=== PATIENT | female | born 1985 | race African-American/Black ===

== ENCOUNTER 2021-09-27 15:47 | Emergency (ER) | payer OTHER, SELFPAY ==
--- NOTE | 2021-09-27 16:12 | ED.URI ---
HPI - URI/Sore Throat General Chief Complaint: Upper Respiratory Infection Stated Complaint: headache,body aches, trouble breathing, vomiting Time Seen by Provider: 09/27/21 16:13 Source: patient and RN notes reviewed Mode of arrival: ambulatory Limitations: no limitations History of Present Illness MD elicited complaint: fever, cough, rhinorrhea and nasal congestion Onset (ago): day(s) (2) Consistency: constant and progressively worsening Severity: moderate Exacerbating factors: other (coughing) Relieving factors: nothing Associated symptoms: chills, myalgias, headache, cough, nausea, vomiting and diarrhea Related Data Home Medications Medication Instructions Recorded Confirmed No Home Medications 09/27/21 09/27/21 Allergies Allergy/AdvReac Type Severity Reaction Status Date / Time meperidine [From Demerol] Allergy Unknown Verified 09/27/21 16:53 Review of Systems Review of Systems: All systems reviewed & are unremarkable except as noted in HPI and below PMFSH Past Medical History Medical History (Updated 09/27/21 @ 18:28 by Reggie Cardenas MD) Ovarian cyst Surgical History Surgical History (Updated 09/27/21 @ 16:28 by Reggie Cardenas MD) Ovarian cyst cysts removed off of ovaries Social History Social History (Updated 09/27/21 @ 16:28 by Reggie Cardenas MD) Smoking status: Current every day smoker Exam Const: General: healthy appearing, no acute distress and alert Nutritional Appearance: well nourished Orientation/consciousness: patient oriented x3 HENMT: Head: normal to inspection Ears: external ears normal Eyes: Conjunctivae: conjunctivae normal Pupils: Equal, round and reactive pupils present EOM: EOMs intact bilaterally Neck: Neck: normal visual inspection Resp: Effort & Inspection: normal respiratory effort Auscultation: clear to auscultation bilaterally Cardio: Rate: regular rate Rhythm: regular rhythm GI: GI Palp: Yes Soft to palpation and Yes Tenderness to palpation present (GI) (mild states it feels sore from coughing and vomiting) Auscultation: normal bowel sounds Back/Spine/Pelvis: Back: no CVA tenderness Cervical Spine: cervical ROM normal Thoracic/Lumbar Spine: thoraco-lumbar ROM normal Skin: General skin exam: normal color Rashes: no rashes Neuro: General: patient oriented x3, moves all extremities, no meningeal signs, no focal motor deficits and CN's II-XI intact bilaterally Speech: normal speech Gait exam (Neuro): Normal gait present Extrem: General: normal to inspection and no clubbing, cyanosis or edema Psych: Appearance: grossly normal and well kempt Mental Status: mental status grossly normal Affect: normal affect Attitude: cooperative Thought content: Yes Normal thought content present Course Vital Signs Vital signs: Vital Signs Temperature 37.7 C H 09/27/21 16:32 Pulse Rate 111 H 09/27/21 16:32 Respiratory Rate 24 H 09/27/21 16:32 Blood Pressure 163/111 H 09/27/21 16:32 Pulse Oximetry 99 09/27/21 16:32 Temperature 37.7 C H 09/27/21 16:32 Pulse Rate 88 09/27/21 18:38 Respiratory Rate 20 09/27/21 18:38 Blood Pressure 151/95 H 09/27/21 18:38 Pulse Oximetry 98 09/27/21 18:38 MDM - URI/Sore Throat Differential Diagnosis Differential diagnosis: Likely upper respiratory infection, viral infection, bronchitis and influenza Lab Data Attestation: I reviewed the patient's lab results. Result diagrams: 09/27/21 17:27 09/27/21 17:27 Labs: Lab Results 09/27/21 09/27/21 09/27/21 Range/Units 16:12 16:13 17:27 WBC 8.7 (4.8-10.8) K/mm3 RBC 4.29 (4.20-5.40) M/mm3 Hgb 12.7 (12.0-15.0) g/dL Hct 38.3 (35.0-49.0) % MCV 89.3 (78.0-102.0) fL MCH 29.6 (27.0-31.0) pg MCHC 33.2 (32.0-36.0) g/dL RDW 13.4 (11.6-14.4) % Plt Count 212 (150-420) K/mm3 MPV 10.0 (9.2-11.8) fl Immature Gran % (Auto) 0.3 H (0.0-0.0) % Neut % (Auto) 78.4 H (
[2021-09-27 16:32] VITALS: BP 163/111; PULSE 111; RESP 24; TEMP 37.7; O2SAT 99
[2021-09-27] MEDS: ONDANSETRON HCL ODT 4 MG TABLET PO (16:50)
[2021-09-27 17:05] LABS: SARS-CoV-2 RNA PCR Negative (Negative)
[2021-09-27 17:35] LABS: Basophils Absolute Auto 0.02 K/mm3 (0.00-0.10); Basophils Percent Auto 0.2 % (0.0-1.0); Eosinophils Absolute Auto 0.03 K/mm3 (0.02-0.50); Eosinophils Percent Auto 0.3 % (1.0-6.0); Hematocrit 38.3 % (35.0-49.0); Hemoglobin 12.7 g/dL (12.0-15.0); Immature Granulocyte Absolute 0.03 K/mm3 (0.00-0.00); Immature Granulocyte Percent A 0.3 % (0.0-0.0); Lymphocytes Absolute Auto 1.37 K/mm3 (1.10-4.50); Lymphocytes Percent Auto 15.7 % (18.0-42.0); Mean Corpuscular HGB Conc 33.2 g/dL (32.0-36.0); Mean Corpuscular Hemoglobin 29.6 pg (27.0-31.0); Mean Corpuscular Volume 89.3 fL (78.0-102.0); Monocytes Absolute Auto 0.44 K/mm3 (0.10-0.90); Monocytes Percent Auto 5.1 % (2.0-11.0); Neutrophils Absolute Auto 6.8 K/mm3 (1.7-7.2); Neutrophils Percent Auto 78.4 % (50.0-70.0); Platelet Count Result 212 K/mm3 (150-420); Red Blood Count 4.29 M/mm3 (4.20-5.40); Red Cell Distribution Width 13.4 % (11.6-14.4); White Blood Count 8.7 K/mm3 (4.8-10.8)
[2021-09-27 18:04] LABS: Alanine Aminotransferase 25 U/L (14-59); Albumin Level 3.8 g/dL (3.4-5.0); Alkaline Phosphatase 51 U/L (46-116); Anion Gap 16 mmol/L (8-16); Aspartate Amino Transferase 23 U/L (15-37); Bilirubin,Total 0.7 mg/dL (0.00-1.00); Blood Urea Nitrogen 4 mg/dL (7-18); Calcium 9.3 mg/dL (8.5-10.1); Carbon Dioxide 22 mmol/L (21-32); Chloride 99 mmol/L (98-108); Estimated CRCL calculation 96 ml/min; Estimated Glomerular Filt Rate > 60; Ferritin 150 ng/mL (8-252); Glucose 97 mg/dL (70-99); Magnesium 1.8 mg/dL (1.8-2.4); Osmolality Calculated 280 mOsm/kg (285-295); Potassium 3.4 mmol/L (3.5-5.1); Sodium 137 mmol/L (136-145); Total Protein 8.2 g/dL (6.4-8.2)
[2021-09-27 18:06] LABS: CRP 14.1 mg/dL (0.0-0.9)
[2021-09-27] MEDS: ACETAMINOPHEN 325 MG TABLET 650 MG PO (18:06)
[2021-09-27 18:09] LABS: Influenza A QL RT-PCR Negative (Negative); Influenza B QL RT-PCR Negative (Negative)
[2021-09-27 18:11] VITALS: BP 151/100; PULSE 73; RESP 20; O2SAT 97
[2021-09-27 18:13] LABS: Lactic Acid Reflex 0.9 mmol/L (0.4-2.0)
[2021-09-27 18:38] VITALS: BP 151/95; PULSE 88; RESP 20; O2SAT 98
== END 2021-09-27 18:42 | disposition home or self-care (01) ==
PROVIDERS: Emergency Provider Emergency Medicine; PCP Family Medicine
DX: J06.9 Acute upper respiratory infection, unspecified (principal); Z20.822 Contact with and (suspected) exposure to COVID-19
CPT/HCPCS: 36415; 80053; 82728; 83605; 83735; 85025; 86140; 87502; 87804; 96372; 99283; A9270; C9803; J1100; U0003; U0005

== ENCOUNTER 2022-06-18 16:35 | Emergency (ER) | payer OTHER, SELFPAY ==
--- NOTE | ~2022-06-18 | CT_ITS ---
EXAMINATION: CT abdomen pelvis wo con DATE: 06/18/2022 19:20 INDICATION: lower abdominal pain TECHNIQUE: Computed tomography (CT) of the abdomen and pelvis was performed without intravenous contr ast. Automated exposure control and iterative reconstruction technique were employed. The dose-length product was 445.67 mGy-cm. COMPARISON: None. FINDINGS: Lower thorax: Fine bibasilar reticulonodular opacities in the lower lungs. Liver: Normal. Biliary/Gallbladder: Gallbladder is normal. No bile duct dilation. Pancreas: No mass or duct dilation. Spleen: Normal. Adrenals:No mass. Kidneys: No mass, stone, or hydronephrosis. GI tract: No small or large bowel dilation. Normal appendix. Mesentery/Peritoneum: No ascites, mass, or free air. Retroperitoneum: No mass. Pelvis: Pelvic organs are within normal limits. Soft Tissues: Soft tissues and body wall unremarkable. Bones: No acute osseous finding. IMPRESSION: Pulmonary opacities may represent bronchiolitis, as can be seen with atypical infection, asthma, aspi ration, and small airways disease. No acute abdominopelvic process detected. Reviewed, dictated and finalized at location [facility]. PLOYMENT BENEFITS CLAIMS TAKER IMPRESSION: Pulmonary opacities may represent bronchiolitis, as can be seen with atypical i nfection, asthma, aspiration, and small airways disease. No acute abdominopelvi c process detected.
[2022-06-18 17:10] VITALS: BP 121/92; PULSE 102; RESP 16; TEMP 36.4; O2SAT 100
[2022-06-18 17:15] VITALS: BP 121/92; PULSE 102; RESP 16; TEMP 36.4; O2SAT 100
[2022-06-18] MEDS: SODIUM CHLORIDE 0.9% IV 500 ML 999 ML IV CONT (18:11)
[2022-06-18] MEDS: KETOROLAC (*BKC) 60 MG/2 ML VIAL IM (18:13)
[2022-06-18 18:22] LABS: Hematocrit 39.4 % (35.0-49.0); Hemoglobin 12.8 g/dL (12.0-15.0); Mean Corpuscular HGB Conc 32.5 g/dL (32.0-36.0); Mean Corpuscular Hemoglobin 28.7 pg (27.0-31.0); Mean Corpuscular Volume 88.3 fL (78.0-102.0); Platelet Count Result 293 K/mm3 (150-420); Red Blood Count 4.46 M/mm3 (4.20-5.40); Red Cell Distribution Width 13.7 % (11.6-14.4); White Blood Count 3.7 K/mm3 (4.8-10.8)
[2022-06-18 18:39] LABS: Alanine Aminotransferase 63 U/L (14-59); Albumin Level 3.5 g/dL (3.4-5.0); Alkaline Phosphatase 56 U/L (46-116); Anion Gap 10 mmol/L (8-16); Aspartate Amino Transferase 38 U/L (15-37); Bilirubin,Total 0.3 mg/dL (0.00-1.00); Blood Urea Nitrogen 8 mg/dL (7-18); Carbon Dioxide 26 mmol/L (21-32); Chloride 103 mmol/L (98-108); Estimated CRCL calculation 98 ml/min; Estimated Glomerular Filt Rate > 60; Glucose 143 mg/dL (70-99); Lipase 85 U/L (73-393); Osmolality Calculated 288 mOsm/kg (285-295); Potassium 3.6 mmol/L (3.5-5.1); Sodium 139 mmol/L (136-145); Total Protein 7.6 g/dL (6.4-8.2)
[2022-06-18 18:45] LABS: Lactic Acid Reflex 2.1 mmol/L (0.4-2.0)
[2022-06-18 18:52] LABS: Add Urine Microscopic? YES; Appearance Urine Clear (Clear); Bilirubin Urine Negative (Negative); Blood Urine 3+ (Negative); Color Urine Yellow (Yellow); Glucose Urine UA Negative (Negative); Ketones Urine Negative (Negative); Leukocyte Esterase Ur Negative LEU/UL (Negative); Nitrate Urine Negative (Negative); Protein Urine Negative (Negative); Specific Grav Ur 1.025 (1.010-1.020); Urobilinogen Urine 0.2 mg/dL (0.2-1.0)
[2022-06-18 18:57] LABS: Band Neutrophils Percent 0 % (0-6); Basophils Percent Manual 0 % (0-1); Eosinophils Absolute Manual 0.07 K/mm3 (0.02-0.5); Eosinophils Percent Manual 2 % (1-6); Lymphocytes Absolute Manual 0.74 K/mm3 (1.1-4.5); Lymphocytes Percent Manual 20 % (18-44); Monocytes Absolute Manual 0.37 K/mm3 (0.1-0.90); Monocytes Percent Manual 10 % (3-9); Neutrophils Absolute Manual 2.51 K/mm3 (1.7-7.2); Neutrophils Percent Manual 68 % (46-73); Platelet Estimate Adequate (Adequate)
[2022-06-18 19:01] LABS: Serum Qual hCG Negative
[2022-06-18 19:02] LABS: SPREG INTERNAL CONTROL Positive
[2022-06-18 19:05] LABS: RBC Urine 21-50 /hpf (0-2); WBC Urine 0-3 /hpf (0-3)
[2022-06-18 19:06] LABS: Bacteria Urine Trace /hpf; Squamous Epithelial Cell Urine Occasional /hpf (Few)
[2022-06-18 19:10] VITALS: BP 122/78; PULSE 87; RESP 20; TEMP 36.6; O2SAT 98
[2022-06-18 21:17] LABS: Reflex Lactic Acid Yes or No Add Lactic
--- NOTE | 2022-06-18 21:53 | ED.ABDPAIN ---
HPI - Abdominal Pain General Chief Complaint: Abdominal Pain Stated Complaint: Abdominal pain right side started yesterday Time Seen by Provider: 06/18/22 16:38 Source: patient and RN notes reviewed Mode of arrival: ambulatory Limitations: no limitations History of Present Illness MD elicited complaint: abdominal pain Onset (ago): day(s) (1) Pain Consistency: constant Location: R flank Severity: moderate Pain scale (0-10): 8 Quality: aching Migration to: no migration Exacerbating factors: nothing Relieving factors: nothing Related Data Patient : No Allergies Allergy/AdvReac Type Severity Reaction Status Date / Time meperidine [From Demerol] Allergy Unknown Verified 06/18/22 17:29 Review of Systems Review of Systems: All systems reviewed & are unremarkable except as noted in HPI and below Constitutional: Constitutional: Reports no additional constitutional complaints Eyes: Eyes: Reports no additional eye complaints ENT: Reports system reviewed and no additional complaints, except as documented Cardiovascular: Cardiovascular: Reports no additional cardiovascular complaints Respiratory: Respiratory: Reports no additional respiratory complaints Gastrointestinal: Gastrointestinal: Reports no additional gastrointestinal complaints Genitourinary: Genitourinary: Reports no additional female genitourinary complaints Musculoskeletal: Musculoskeletal: Reports no additional musculoskeletal complaints Integumentary/Breasts: Skin/Breast: Reports system reviewed and no additional complaints, except as docu Neurologic: Reports system reviewed and no additional complaints, except as documented Psychiatric: Psychiatric: Reports no additional psychiatric complaints Endocrine: Endocrine: Reports no additional endocrine complaints Hematologic/Lymphatic: Hematologic/Lymphatic: Reports no additional hematologic/lymphatic complaints Allergic/Immunologic: Allergic/Immunologic: Reports no additional allergic/immunologic complaints PMFSH Past Medical History Medical History Bronchiolitis Ovarian cyst Pelvic pain Surgical History Surgical History Ovarian cyst cysts removed off of ovaries Social History Social History Smoking status: Current every day smoker Exam Const: General: no acute distress and well nourished Nutritional Appearance: well nourished Orientation/consciousness: patient oriented x3 Limitations: no limitations HENMT: Head: normal to inspection Ears: external ears normal, TM's normal bilaterally and EAC's normal Face/Nose/Sinus: Normal external nose present, Normal nares present, normal facial exam and sinuses nontender Face and sinus: normal facial exam and sinuses nontender Mouth: Yes Normal oral and palatal mucosa present and Yes moist mucous membranes Teeth and gingiva: dentition normal Throat: posterior oropharynx normal Eyes: Conjunctivae: conjunctivae normal Pupils: Equal, round and reactive pupils present EOM: EOMs intact bilaterally Neck: Neck: normal visual inspection, no lymphadenopathy and no meningeal signs Chest: Chest palpation & inspection: normal inspection of the chest Resp: Effort & Inspection: normal respiratory effort Auscultation: clear to auscultation bilaterally Cardio: Rate: regular rate Rhythm: regular rhythm GI: GI Palp: Yes Soft to palpation and Yes Tenderness to palpation present (GI) (minimally tender RLQ abdomen) Auscultation: normal bowel sounds : General: Yes bladder normal to palpation and Yes no CVA tenderness Bimanual exam- vagina & uterus: bladder normal to palpation Back/Spine/Pelvis: Back: no CVA tenderness Skin: General skin exam: normal color Rashes: no rashes Wounds: no wounds Neuro: General: patient oriented x3, moves all extremities, no meningeal signs, no focal
[2022-06-18] MEDS: HYDROcodone/acetaminophen (*CRX) 5-325 MG TABLET 1 TAB PO (21:55)
[2022-06-18 21:56] VITALS: BP 115/80; PULSE 87; RESP 18; TEMP 36.6; O2SAT 99
[2022-06-18 21:57] LABS: Lactic Acid 1.4 mmol/L (0.4-2.0)
== END 2022-06-18 22:07 | disposition home or self-care (01) ==
PROVIDERS: Emergency Provider Emergency Medicine; PCP Physician Assistant
DX: R10.2 Pelvic and perineal pain (principal); J21.9 Acute bronchiolitis, unspecified
CPT/HCPCS: 36415; 74176; 80053; 81001; 83605; 83690; 84703; 85025; 96360; 96372; 99284; A9270; J1885; J7040

== ENCOUNTER 2022-08-27 13:49 | Outpatient (CLI) | payer OTHER, SELFPAY ==
--- NOTE | ~2022-08-27 | XR_ITS ---
EXAMINATION: XR chest 2V DATE: 08/27/2022 14:15 INDICATION: Shortness of breath and productive cough. TECHNIQUE: PA and lateral views of the chest were obtained. COMPARISON: CT dated 06/10/2022 FINDINGS: Fine reticular pattern in both lungs most prominent in the right mid and upper lung zones. No pleural effusion or pneumothorax. The cardiomediastinal silhouette is normal. Mild thoracic levocurvature. IMPRESSION: 1. Bilateral diffuse fine reticular pattern which could represent chronic interstitial lung disease, sarcoidosis, mild pulmonary edema, reactive airway disease/asthma or atypical pneumonia. Reviewed, dictated and finalized at location [facility]. TERED WEALTH MANAGER IMPRESSION: 1. Bilateral diffuse fine reticular pattern which could represent chronic inter stitial lung disease, sarcoidosis, mild pulmonary edema, reactive airway diseas e/asthma or atypical pneumonia.
== END 2022-08-27 13:50 | disposition home or self-care (01) ==
LOC: CHSIMG 13:53
PROVIDERS: PCP Physician Assistant; Visit Provider Physician Assistant
DX: R06.02 Shortness of breath (principal); U09.9 Post COVID-19 condition, unspecified; R05.9 Cough, unspecified; Z87.891 Personal history of nicotine dependence; R91.8 Other nonspecific abnormal finding of lung field
CPT/HCPCS: 71046

== ENCOUNTER 2022-09-28 12:13 | Outpatient (CLI) | payer OTHER, SELFPAY ==
--- NOTE | ~2022-09-28 | CT_ITS ---
CT Scan of the Chest without Contrast: Clinical Indication: Abnormal findings of lung field Technique: Contiguous sections were acquired throughout the chest without intravenous contrast. Dose reduction technique was used on this scan by utilizing automated exposure control and iterative recon struction technique. The dose-length product (DLP) was 139.56 mGy-cm. Findings: Mildly prominent mediastinal lymph nodes are present.. No aortic aneurysm. There is no evidence of pleural or pericardial effusion. There are innumerable tiny pulmonary nodules and mild interstitial thickening. The pulmonary nodules especially present along the fissures and subpleural regions, compatible with perilymphatic distribut ion. Images through the upper abdomen reveal no abnormalities. Impression: Innumerable tiny perilymphatic nodules, extensive mild interstitial thickening, and mild mediastinal adenopathy. Constellation of findings is most compatible with sarcoid with significant pulmonary invo lvement. Reviewed, dictated and finalized at [facility]. OPERATIONS COORDINATOR Impression: Innumerable tiny perilymphatic nodules, extensive mild interstitial thickening, and mild mediastinal adenopathy. Constellation of findings is most compatible with sarcoid with significant pulmonary involvement.
--- NOTE | 2022-09-28 13:29 | ECHO_ITS ---
Patient Info Name: Jane Newman Age: 36 years : 1985 Gender: Female Ht: 67 in Wt: 182 lbs BSA: 2.00 m2 HR: 63 bpm BP: 149 / 107 mmHg Technical Quality: Good Exam Date: 09/28/2022 1:17 PM Exam Location: [facility] Patient Status: Outpatient Admit Date: 09/28/2022 Staff Ordering Physician: Yobani, Adenike ARTEAGA Chief Of Staff Doctor: Maikel Yee, DEBRA, RT Attending Provider: Yobani, Adenike ARTEAGA Exam Type: CA echo doppler color flow Study Info Indications - SALDANA R06.09 - Other forms of dyspnea Complete two-dimensional, color flow and Doppler transthoracic echocardiogram is performed. Strain analysis performed. Summary 1. Complete two-dimensional, color flow and Doppler transthoracic echocardiogram is performed. 2. Left ventricular chamber dimension is normal. 3. Left ventricular systolic function is normal, estimated at 60-65%. 4. The left ventricular diastolic function is normal. 5. E/e' 9 is minimally elevated. 6. Global longitudinal strain is normal at -19.4%. 7. There is mild mitral valve regurgitation. 8. There is trace tricuspid valve regurgitation. Left Ventricle E/e' 9 is minimally elevated. Global longitudinal strain is normal at -19.4%. Left ventricular chamber dimension is normal. Left ventricular systolic function is normal, estimated at 60-65%. The left ventricular diastolic function is normal. Right Ventricle Right ventricular systolic function is normal and with normal TAPSE 1.7 cm. Right ventricular chamber dimension is normal. Left Atria Left atrial chamber dimension is normal. Right Atria Right atrial chamber dimension is normal. Aortic Valve The aortic valve is trileaflet. There is no aortic valve stenosis. There is no aortic valve regurgitation. Pulmonic Valve There is no pulmonic regurgitation. Mitral Valve There is no mitral valve stenosis. There is mild mitral valve regurgitation. Tricuspid Valve There is trace tricuspid valve regurgitation. RVSP is not calculated due to an inadequate TR jet. Pericardium/Pleural There is no pericardial effusion. Inferior Vena Cava Normal inferior vena cava with >50% collapse upon inspiration consistent with normal right atrial pressure, 5 mmHg. Aorta The aortic root size at the sinus of Valsalva is normal. Left Ventricular Outflow Tract Name Value Normal LVOT 2D LVOT Diameter 2.0 cm LVOT Doppler LVOT Peak Velocity 105 cm/s LVOT Peak Gradient 4 mmHg LVOT Mean Gradient 2 mmHg LVOT VTI 23 cm LVOT VTI/AV VTI Ratio 0.8 LVOT Stroke Volume 74 ml Mitral Valve Name Value Normal MV Doppler MV Decel Monona 558 cm/s2 MV PHT
== END 2022-09-28 12:14 | disposition home or self-care (01) ==
LOC: CHSIMG 12:15
PROVIDERS: PCP Physician Assistant; Visit Provider Nurse Practitioner Gerontology
DX: R91.8 Other nonspecific abnormal finding of lung field (principal); R06.09 Other forms of dyspnea
CPT/HCPCS: 71250; 93306

== ENCOUNTER 2022-10-02 09:13 | Outpatient (CLI) | payer OTHER, SELFPAY ==
[2022-10-02 10:45] VITALS: PULSE 74; O2SAT 100
[2022-10-02 10:52] VITALS: PULSE 99; O2SAT 99
--- NOTE | 2022-10-02 11:41 | SIXMINWLK ---
Six Minute Walk Test PFT: Six Minute Walk Start: 10/02/22 11:36 Freq: Status: Active Protocol: RPE Activity Type Activity Date Activity User E-sign Co-sign Detail Recorded Client Recorded Date Recorded By Document 10/02/22 10:45 YANAGt [id number] 10/02/22 11:39 RAMIRO Document 10/02/22 10:52 RAMIRO [id number] 10/02/22 11:41 KAB 10/02/22 10/02/22 10:45 10:52 Six Minute Walk Gender F F Age [age] Race Black Palestinian Black Six Minute Walk Post Test -Pulse Rate (60-100 beats/min) 99 -Pulse Oximetry (90-100 %) 99 Six Minute Walk Baseline -Pulse Rate (60-100 beats/min) 74 -Pulse Oximetry (90-100 %) 100 Number of Complete Laps ( 1 Lap = 100 12 Feet, Enter Total Feet) Stopped/Paused During Testing - Enter Yes Comment if Yes Six Minute Walk Comments Patient's Spo2 dropped to 89, we paused to make sure that was correct and Spo2 went back up to 99 before we did anything. Spo2 stayed up for duration of test.
--- NOTE | 2022-10-12 15:36 | WPDPFTINT ---
PFT Interpretation DOS: 10/02/2022 REQUESTING: Adenike Hilton NP REASON FOR TESTING: dyspnea PULMONARY FUNCTION TESTS Results are reliable and reproducible. Spirometry: Pre-bronchodilator FEV1 is 2.14 L, 70% predicted, mildly decreased. Pre-bronchodilator FVC is 3.02 L, 81%, normal. FEV1/ FVC ratio is 71%. After bronchodilator administration there is no change in the FEV1. There is a 3% decrease in the FVC. These are not statistically significant changes. Lung volumes: Total lung capacity is 3.75 L, 66% predicted, consistent with mild restrictive impairment. The residual volume is 0.61 L, 32%, not increased. RV/TLC is 16%, lower than normal. Airway resistance is 233% predicted. Diffusion: DLCO is 18.5, 70%, normal. DLCO/ VA is 4.76, 107%, normal. Flow volume loop: Normal. IMPRESSION: This study shows a mild restrictive ventilatory impairment, no response to bronchodilator and normal diffusion. There is no prior study for comparison. Niru Desouza MD
--- NOTE | 2022-10-24 12:38 | WPDSIXMINUTE ---
Six Minute Walk Procedure Procedure Performed Pulmonary Stress Test (6 min walk) Six Minute Walk Six Minute Walk: DOS: 10/02/2022 SIX MINUTE WALK This study was conducted per ATS criteria. the patient walked while breathing room air. Initial saturation was 100% and initial pulse was 74. The patient walked with a decrease in her saturation to 89% transiently. The cdl service technician stop the test to ensure accuracy of the 6 oximeter. Test was quickly restarted and the patient completed a total distance of 1200 ft. There were no further episodes of desaturation. IMPRESSION: Transient desaturation 89% without rachel hypoxemia. Patient does not qualify for supplemental oxygen with exertion. Distance walked is adequate for age.
== END 2022-10-02 09:14 | disposition home or self-care (01) ==
LOC: CHSCARD 09:20
PROVIDERS: PCP Physician Assistant; Visit Provider Nurse Practitioner Gerontology
DX: R91.8 Other nonspecific abnormal finding of lung field (principal); R06.09 Other forms of dyspnea
CPT/HCPCS: 94060; 94618; 94726; 94729

== ENCOUNTER 2022-10-05 09:46 | Emergency (ER) | payer OTHER, SELFPAY ==
[2022-10-05] VITALS (20 sets, daily range): BP systolic 122–159; BP diastolic 97–107; PULSE 82–122; RESP 18–24; TEMP 36.8–37; O2SAT 98–100
--- NOTE | 2022-10-05 09:56 | ED.GENADULT ---
HPI - General Adult General Chief complaint: Upper Respiratory Infection Stated complaint: cough Time Seen by Provider: 10/05/22 09:55 History of Present Illness HPI narrative: The patient is a 36-year-old woman who was recently diagnosed with sarcoidosis, placed on prednisone 20 mg daily for 7 days last month and then more recently has been placed on prednisone 40 mg daily which she has now taken for the last 3 days but not including today. She has seen a pediatric orthodontist for this due to symptoms of dyspnea and voice changes. She is also status post ovarian cystectomy. She does smoke cigarettes. She has had COVID-19 in the past. Her son was diagnosed with COVID-19 4 days ago in this institution. she has had 5 prior pregnancies. She has done a home test by urine 3 days ago twice and was positive. This makes it her 6th . The patient presents with onset of upper respiratory tract infection symptoms consisting of a cough productive of green sputum, myalgias, aches and pains, headache, dyspnea, rhinorrhea, nasal congestion, and sore throat. She has had 5 episodes of emesis since yesterday morning. She has had 3 episodes of watery diarrhea since yesterday morning, 2 today, once yesterday. Has had fevers as high as 101?, chills and diaphoresis. She also has had vaginal spotting, noticed yesterday, and again earlier today. Does have epigastric and lower pelvic discomfort which radiates to the back. For the last month, has had urinary urgency but no frequency or dysuria or hematuria. Related Data Allergies Allergy/AdvReac Type Severity Reaction Status Date / Time meperidine [From Demerol] Allergy Unknown Verified 06/18/22 17:29 Review of Systems Review of Systems: All systems reviewed & are unremarkable except as noted in HPI and below Constitutional: Constitutional: Reports as per HPI, Reports no additional constitutional complaints, Reports chills, Denies excessive sweating, Reports fatigue, Reports fever(s), Reports headache(s) and Reports weakness Eyes: Eyes: Reports as per HPI, Reports no additional eye complaints, Denies change in vision and Denies photophobia ENT: Reports system reviewed and no additional complaints, except as documented, Reports as per HPI, Denies dysphagia, Denies vertigo, Denies dizziness, Reports headache(s), Denies lip swelling, Reports nasal congestion, Reports sore throat, Denies throat swelling and Denies tongue swelling Cardiovascular: Cardiovascular: Reports as per HPI, Reports no additional cardiovascular complaints, Denies chest pain, Denies syncope, Denies rapid heart rate and Reports dyspnea Respiratory: Respiratory: Reports as per HPI, Reports no additional respiratory complaints, Reports chest congestion, Reports cough, Reports dyspnea and Denies wheezing Gastrointestinal: Gastrointestinal: Reports as per HPI, Reports no additional gastrointestinal complaints, Reports abdominal pain, Denies constipation, Denies dysphagia, Reports diarrhea, Reports nausea and Reports vomiting Genitourinary: Genitourinary: Reports as per HPI, Denies hematuria, Denies urinary frequency, Denies dysuria, Denies urinary incontinence and Reports urinary urgency Musculoskeletal: Musculoskeletal: Reports no additional musculoskeletal complaints, Denies back pain, Reports myalgias, Denies arthralgias, Denies joint swelling and Denies numbness Integumentary/Breasts: Skin/Breast: Reports system reviewed and no additional complaints, except as docu, Denies pruritus, Denies erythema, Denies rash and Denies skin ulcer Neurologic: Reports system reviewed and no additional complaints, except as documented, Reports as per HPI, Denies confusion, Denies vertigo, Denies dizziness, Denies syncope, Reports headache(s), Denies focal weakness, Denies numbness and Reports weakness (generalized) Psychiatric: Psychiatric: Reports as per HPI, Denies anxiety, Denies confusion, Denies depression, Denies homicidal ideation and Denies jose
[2022-10-05 10:27] LABS: Appearance Urine Clear (Clear); Basophils Absolute Auto 0.03 K/mm3 (0.00-0.10); Basophils Percent Auto 0.3 % (0.0-1.0); Bilirubin Urine 1+ (Negative); Blood Urine Negative (Negative); Color Urine Yellow (Yellow); Eosinophils Absolute Auto 0.04 K/mm3 (0.02-0.50); Eosinophils Percent Auto 0.4 % (1.0-6.0); Glucose Urine UA Negative (Negative); Hemoglobin 12.4 g/dL (12.0-15.0); Immature Granulocyte Absolute 0.04 K/mm3 (0.00-0.00); Immature Granulocyte Percent A 0.4 % (0.0-0.0); Ketones Urine 2+ (Negative); Leukocyte Esterase Ur Negative LEU/UL (Negative); Lymphocytes Absolute Auto 0.72 K/mm3 (1.10-4.50); Lymphocytes Percent Auto 7.6 % (18.0-42.0); Mean Corpuscular HGB Conc 34.4 g/dL (32.0-36.0); Mean Corpuscular Hemoglobin 28.2 pg (27.0-31.0); Mean Platelet Volume 9.9 fl (9.2-11.8); Monocytes Percent Auto 6.3 % (2.0-11.0); Neutrophils Absolute Auto 8.1 K/mm3 (1.7-7.2); Nitrate Urine Negative (Negative); Platelet Count Result 226 K/mm3 (150-420); Protein Urine Trace (Negative); Red Blood Count 4.39 M/mm3 (4.20-5.40); Red Cell Distribution Width 15.8 % (11.6-14.4); White Blood Count 9.5 K/mm3 (4.8-10.8)
[2022-10-05] MEDS: ONDANSETRON INJ 4 MG/2 ML VIAL IV PUSH (10:37)
[2022-10-05] MEDS: SODIUM CHLORIDE 0.9% IV 1,000 ML 999 ML IV CONT ×2 (10:37)
[2022-10-05 10:41] LABS: Add Urine Microscopic? YES
[2022-10-05 10:42] LABS: Bacteria Urine Trace /hpf; RBC Urine 0-2 /hpf (0-2); Squamous Epithelial Cell Urine Moderate /hpf (Few); WBC Urine 0-3 /hpf (0-3)
[2022-10-05 11:04] LABS: Influenza A QL RT-PCR Negative (Negative); Influenza B QL RT-PCR Negative (Negative); SARS-CoV-2 RNA PCR Negative (Negative)
[2022-10-05 11:10] LABS: RSV RNA, RT-PCR Negative (Negative); Strep Group A RT-PCR NOT DETECTED (Negative)
[2022-10-05 11:26] LABS: Lactic Acid Reflex 1.2 mmol/L (0.4-2.0)
[2022-10-05 11:33] LABS: Amphetamine Screen Urine Negative (Negative); Barbiturate Screen Urine Negative (Negative); Benzodiazepines Screen Urine Negative (Negative); Cannabinoid Screen Urine Positive (Negative); Cocaine Screen Urine Negative (Negative); Methadone Screen Urine Negative (Negative); Opiate Screen Urine Negative (Negative); Phencyclidine Screen Urine Negative (Negative)
[2022-10-05 11:38] LABS: Amylase 52 U/L (25-115); Magnesium 1.4 mg/dL (1.8-2.4)
[2022-10-05 11:39] LABS: Anion Gap 15 mmol/L (8-16); Blood Urea Nitrogen 5 mg/dL (7-18); Carbon Dioxide 21 mmol/L (21-32); Chloride 98 mmol/L (98-108); Estimated CRCL calculation 96 ml/min; Estimated Glomerular Filt Rate > 60; Glucose 126 mg/dL (70-99); Lipase 20 U/L (16-77); Osmolality Calculated 277 mOsm/kg (285-295); Potassium 3.2 mmol/L (3.5-5.1); Sodium 134 mmol/L (136-145)
[2022-10-05 11:40] LABS: Alanine Aminotransferase 34 U/L (14-59); Albumin Level 3.6 g/dL (3.4-5.0); Alkaline Phosphatase 52 U/L (46-116); Aspartate Amino Transferase 23 U/L (15-37); Bilirubin,Total 0.9 mg/dL (0.00-1.00); Calcium 9.3 mg/dL (8.5-10.1); Total Protein 8.4 g/dL (6.4-8.2)
[2022-10-05] MEDS: ACETAMINOPHEN 500 MG TABLET 1000 MG PO (12:03)
[2022-10-05] MEDS: MAGNESIUM SULF 2 GM/WATER 50ML 2 GM/50 ML BAG IVPB (12:07)
[2022-10-05] MEDS: POTASSIUM BICARBONATE 25 MEQ TABEF 50 MEQ PO (12:07)
--- NOTE | 2022-10-11 14:15 | PC.NURSE ---
FINAL BLOOD CULTURE REPORT : No growth after 5 days. no action needed.
== END 2022-10-05 13:19 | disposition home or self-care (01) ==
PROVIDERS: Emergency Provider Emergency Medicine; PCP Physician Assistant
DX: O99.519 Diseases of the respiratory system complicating pregnancy, unspecified trimester (principal); O21.0 Mild hyperemesis gravidarum; O26.899 Other specified pregnancy related conditions, unspecified trimester; E83.42 Hypomagnesemia; E87.6 Hypokalemia; O99.330 Smoking (tobacco) complicating pregnancy, unspecified trimester; F17.210 Nicotine dependence, cigarettes, uncomplicated; Z3A.00 Weeks of gestation of pregnancy not specified; Z20.822 Contact with and (suspected) exposure to COVID-19
CPT/HCPCS: 36415; 80053; 80307; 81001; 82150; 83605; 83690; 83735; 84702; 85025; 86900; 86901; 87040; 87637; 87651; 96361; 96365; 96375; 99284; A9270; J2405; J3475; J7030

== ENCOUNTER 2022-10-10 10:21 | Outpatient (CLI) | payer OTHER, SELFPAY ==
--- NOTE | ~2022-10-10 | US_ITS ---
CORRECTED REPORT exam description changed [facility] [id number] This report was recreated on 10/10/22. Original report was US OB <= 14 weeks fetus DATE: 10/10/2022 11:04 INDICATION: Vaginal spotting TECHNIQUE: Real-time imaging and Doppler analysis COMPARISON: None FINDINGS: The uterus measures approximately 10.2 cm height, 7.7 cm AP and 6.2 cm transverse dimension. There is intrauterine gestational sac or yolk sac and pole are identified. Mean sac diameter consistent with 6 weeks estimated gestational age. There is a 5.6 x 9.3 x 6.7 mm subchorionic hematoma. Cervical nabothian cyst measuring approximately 9 x 11 mm. Right ovary 2.8 x 2.4 x 2.9 cm. Left ovary 4.0 x 1.7 x 2.5 cm. IMPRESSION: Subchorionic hematoma Reviewed, dictated and finalized at [facility]. Reviewed, dictated and finalized at location [facility]. MTDD IMPRESSION: Subchorionic hematoma
== END 2022-10-10 10:22 | disposition home or self-care (01) ==
LOC: CHSLAB 10:23
PROVIDERS: PCP Physician Assistant; Visit Provider Family Medicine
DX: O26.859 Spotting complicating pregnancy, unspecified trimester (principal); O36.8911 Maternal care for other specified fetal problems, first trimester, fetus 1; Z3A.00 Weeks of gestation of pregnancy not specified
CPT/HCPCS: 36415; 76801; 84702

== ENCOUNTER 2022-10-12 13:16 | Outpatient (CLI) | payer OTHER, SELFPAY | END 2022-10-12 13:17 | disposition home or self-care (01) | LOC: CHSLAB 13:18 | PROVIDERS: PCP Physician Assistant; Visit Provider Family Medicine | DX: O26.859 Spotting complicating pregnancy, unspecified trimester (principal) | CPT/HCPCS: 36415; 84702 ==

== ENCOUNTER 2022-12-12 08:32 | Emergency (ER) | payer OTHER, SELFPAY ==
[2022-12-12] VITALS (7 sets, daily range): BP systolic 116–139; BP diastolic 78–90; PULSE 86–104; RESP 20–24; TEMP 36.4; O2SAT 92–97
--- NOTE | 2022-12-12 08:38 | ED.URI ---
HPI - URI/Sore Throat General Chief Complaint: Upper Respiratory Infection Stated Complaint: stomach pain, difficulty breathing, coughing Time Seen by Provider: 12/12/22 08:38 Source: patient Mode of arrival: ambulatory Limitations: no limitations History of Present Illness HPI Narrative: 36-year-old female with a history of sarcoidosis on steroids. Questionable asthma which was stopped secondary to her . ( on home albuterol and Symbicort) presents to the ER with a 3 day history of -- cough productive of mucoid sputum -- shortness of breath -- sore throat -- body ache -- nausea -- patient is 15 weeks as confirmed by an ultrasound. She has had a 6 pack prior pregnancies without any major respiratory problems. MD elicited complaint: cough and sore throat Pertinent past history: asthma Onset (ago): day(s) ( started 3 days ago) Consistency: constant Severity: severe Description of mucous: clear Exacerbating factors: exertion Relieving factors: nothing Associated symptoms: sore throat, cough, shortness of breath and nausea Treatments prior to arrival: none Related Data Home Medications Medication Instructions Recorded Confirmed aspirin 81 mg tablet,delayed 81 mg PO DAILY 12/12/22 12/12/22 release pyridoxine (vitamin B6) 25 mg 1 mg PO DAILY 12/12/22 12/12/22 tablet (Vitamin B-6) Allergies Allergy/AdvReac Type Severity Reaction Status Date / Time meperidine [From Demerol] Allergy Unknown Verified 12/12/22 08:35 Review of Systems Review of Systems: All systems reviewed & are unremarkable except as noted in HPI and below Constitutional: Constitutional: Reports as per HPI and Reports no additional constitutional complaints Eyes: Eyes: Reports as per HPI and Reports no additional eye complaints ENT: Reports system reviewed and no additional complaints, except as documented, Reports as per HPI and Reports sore throat Cardiovascular: Cardiovascular: Reports as per HPI and Reports no additional cardiovascular complaints Respiratory: Respiratory: Reports as per HPI, Reports cough, Reports dyspnea and Reports wheezing Gastrointestinal: Gastrointestinal: Reports as per HPI, Reports no additional gastrointestinal complaints and Reports nausea Genitourinary: Genitourinary: Reports no additional female genitourinary complaints Musculoskeletal: Musculoskeletal: Reports no additional musculoskeletal complaints and Reports as per HPI Integumentary/Breasts: Skin/Breast: Reports system reviewed and no additional complaints, except as docu and Reports as per HPI Neurologic: Reports system reviewed and no additional complaints, except as documented and Reports as per HPI Psychiatric: Psychiatric: Reports no additional psychiatric complaints and Reports as per HPI Endocrine: Endocrine: Reports no additional endocrine complaints and Reports as per HPI Hematologic/Lymphatic: Hematologic/Lymphatic: Reports no additional hematologic/lymphatic complaints and Reports as per HPI Allergic/Immunologic: Allergic/Immunologic: Reports no additional allergic/immunologic complaints and Reports as per HPI [facility] Past Medical History Medical History Bronchiolitis Ovarian cyst Pelvic pain Surgical History Surgical History Ovarian cyst cysts removed off of ovaries Social History Social History Smoking status: Current every day smoker Exam Const: General: ill appearing Orientation/consciousness: patient oriented x3 HENMT: Head: normal to inspection Ears: external ears normal Face/Nose/Sinus: Normal external nose present Face and sinus: normal facial exam Mouth: Yes Normal oral and palatal mucosa present Throat: posterior oropharynx normal Eyes: Conjunctivae: conjunctivae normal Pupils: Equal, round and reactive pupils present EOM: EO
[2022-12-12] MEDS: methylPREDNISolone SOD SUCC 125 MG VIAL IM (08:58)
[2022-12-12] MEDS: IPRATROPIUM 0.5 MG/ALBUTEROL SULFATE 2.5 MG AMPUL.NEB 3 ML INHALATION (09:00)
[2022-12-12 09:14] LABS: Basophils Absolute Auto 0.03 K/mm3 (0.00-0.10); Basophils Percent Auto 0.4 % (0.0-1.0); Eosinophils Absolute Auto 0.27 K/mm3 (0.02-0.50); Eosinophils Percent Auto 3.6 % (1.0-6.0); Hematocrit 38.5 % (35.0-49.0); Hemoglobin 13.2 g/dL (12.0-15.0); Immature Granulocyte Absolute 0.02 K/mm3 (0.00-0.00); Immature Granulocyte Percent A 0.3 % (0.0-0.0); Lymphocytes Absolute Auto 1.06 K/mm3 (1.10-4.50); Lymphocytes Percent Auto 14.2 % (18.0-42.0); Mean Corpuscular HGB Conc 34.3 g/dL (32.0-36.0); Mean Corpuscular Hemoglobin 29.5 pg (27.0-31.0); Mean Corpuscular Volume 86.1 fL (78.0-102.0); Mean Platelet Volume 9.4 fl (9.2-11.8); Monocytes Percent Auto 9.3 % (2.0-11.0); Neutrophils Absolute Auto 5.4 K/mm3 (1.7-7.2); Neutrophils Percent Auto 72.2 % (50.0-70.0); Platelet Count Result 232 K/mm3 (150-420); Red Blood Count 4.47 M/mm3 (4.20-5.40); White Blood Count 7.5 K/mm3 (4.8-10.8)
[2022-12-12 09:31] LABS: INR 0.9; Partial Thromboplastin Time 28.9 SEC (23.90-30.70); Prothrombin Time 10.3 Seconds (9.50-12.10)
[2022-12-12 09:35] LABS: Strep Group A RT-PCR NOT DETECTED (Negative)
--- NOTE | 2022-12-12 09:40 | PC.NURSE ---
PT IS RESTING ON STRETCHER, FHT OBTAINED WITH 179. PT COUGH HAS SUBSIDED POST NEB TX. PT SIG OTHER HAS WENT TO CAR. PT IS AWAITING RESULTS AT THIS TIME. RESP SX IMPROVED. WILL CONTINUE TO MONITOR.
[2022-12-12 09:46] LABS: Influenza A QL RT-PCR Negative (Negative); Influenza B QL RT-PCR Negative (Negative); SARS-CoV-2 RNA PCR Negative (Negative)
[2022-12-12 09:47] LABS: RSV RNA, RT-PCR Negative (Negative)
[2022-12-12 10:00] LABS: Chloride 103 mmol/L (98-108); Potassium 3.6 mmol/L (3.5-5.1); Sodium 138 mmol/L (136-145)
[2022-12-12 10:01] LABS: Alanine Aminotransferase 19 U/L (14-59); Anion Gap 11 mmol/L (8-16); Aspartate Amino Transferase 17 U/L (15-37); Bilirubin,Total 0.2 mg/dL (0.00-1.00); Blood Urea Nitrogen 3 mg/dL (7-18); Calcium 9.2 mg/dL (8.5-10.1); Carbon Dioxide 24 mmol/L (21-32); Estimated CRCL calculation 117 ml/min; Estimated Glomerular Filt Rate > 60; Glucose 95 mg/dL (70-99); Osmolality Calculated 282 mOsm/kg (285-295); Troponin I < 4.0 ng/L (0.00-60.4)
[2022-12-12 10:02] LABS: Albumin Level 3.4 g/dL (3.4-5.0); Alkaline Phosphatase 44 U/L (46-116); NT Pro B Type Natriuretic Pept 16 pg/mL (0-125)
--- NOTE | 2022-12-12 10:09 | PC.NURSE ---
PT UP TO RR, WHEN SHE RETURNS SOB NOTED. PT HAS COUGHING EPISODE WHEN SHE RETURNS, HOWEVER DOES RECOVER WITH MINIMAL DISTRESS. UA WAS COLLECTED AND SENT TO LAB. PT DECLINED HIV TESTING, FORM COMPLETED AND SIGNED. WILL CONTINUE TO MONITOR.
[2022-12-12 10:15] LABS: Appearance Urine Clear (Clear); Bilirubin Urine Negative (Negative); Blood Urine Negative (Negative); Color Urine Yellow (Yellow); Glucose Urine UA Negative (Negative); Ketones Urine 1+ (Negative); Leukocyte Esterase Ur Negative LEU/UL (Negative); Nitrate Urine Negative (Negative); Protein Urine Negative (Negative); Specific Grav Ur 1.025 (1.010-1.020)
[2022-12-12 10:18] LABS: Base Excess ABG -4.1 mmol/L (0-2); HCO3 ABG 18.5 mmol/L (23-29); Oxygen Content ABG 17.2 %vol (16.0-22.0); Oxygen Saturation ABG 91.2 % (95-97); Oxyhemoglobin 90.8 % (94-100); PCO2 ABG 27.6 mmHg (35-45); PO2 ABG 62.4 mmHg (80-90); Total Hemoglobin 13.5 g/dL (12.0-18.0); pH ABG 7.44 (7.35-7.45)
[2022-12-12 10:19] LABS: Device ROOM AIR; Modified Allen's Test Pass; Site Drawn LEFT RADIAL
[2022-12-12 10:23] LABS: Add Urine Microscopic? YES; Bacteria Urine None seen /hpf; RBC Urine 0-2 /hpf (0-2); Squamous Epithelial Cell Urine Few /hpf (Few); WBC Urine 0-3 /hpf (0-3)
[2022-12-12 10:24] LABS: Mucus Urine Few /lpf
--- NOTE | 2022-12-12 10:27 | PC.NURSE ---
ERP AT BEDSIDE
--- NOTE | 2022-12-12 10:42 | PC.NURSE ---
PT IS TALKING ON CELL PHONE WITHOUT DISTRESS. PT DECLINES TRANSFER, STATES KINARDS IS TOO FAR. PT RESP STATUS HAS IMPROVED. WILL CONTINUE TO MONITOR. REPEAT FHT 148, FETUS ACTIVE.
== END 2022-12-12 10:55 | disposition home or self-care (01) ==
PROVIDERS: Emergency Provider Internal Medicine Critical Care Medicine; PCP Physician Assistant
DX: O99.512 Diseases of the respiratory system complicating pregnancy, second trimester (principal); J06.9 Acute upper respiratory infection, unspecified; J45.42 Moderate persistent asthma with status asthmaticus; Z3A.15 15 weeks gestation of pregnancy; Z20.822 Contact with and (suspected) exposure to COVID-19
CPT/HCPCS: 36415; 36600; 80053; 81001; 82805; 83605; 83880; 84484; 84702; 85025; 85610; 85730; 87637; 87651; 94640; 96372; 99284; J2930

== ENCOUNTER 2023-11-15 16:39 | Emergency (ER) | payer OTHER, SELFPAY ==
--- NOTE | ~2023-11-15 | XR_ITS ---
EXAMINATION: XR knee RT 3V DATE: 11/15/2023 17:18 INDICATION: Medial right knee pain post fall TECHNIQUE: Anteroposterior, oblique and crosstable lateral views of the right knee were obtained COMPARISON: None. FINDINGS: Alignment is normal. No fracture. Joint spaces appear normal on nonweightbearing imaging. Bone islan d at the lateral trochlea. No joint effusion. Soft tissues are unremarkable. IMPRESSION: 1. Negative right knee radiographs. Reviewed, dictated and finalized at location A.
[2023-11-15 16:40] VITALS: BP 116/113; PULSE 96; RESP 16; TEMP 36.4; O2SAT 100
--- NOTE | 2023-11-15 16:41 | ED.FALL ---
HPI - Fall General Chief Complaint: Fall Stated Complaint: R knee pain/fall Time Seen by Provider: 11/15/23 16:41 Source: patient Mode of arrival: ambulatory Limitations: no limitations History of Present Illness HPI Narrative: Patient is a 37-year-old female with right knee pain for the past 2 days. She was walking on a ground level and tripped over some objects on the floor and landed on her right knee. She has pain on the medial aspect of the right knee. complaint: fall Onset (ago): day(s) (2) Fall from: standing Fall witnessed: yes, by family Place fall occurred: home Loss of consciousness: none Prolonged down time: no Symptoms prior to fall: none Context: tripped/slipped Location of injury: other ( Right knee) Location of injury - extremities: Right: knee Severity: moderate Severity scale (1-10): 6 Quality: burning and sharp Associated symptoms (after fall): denies Related Data Home Medications Medication Instructions Recorded Confirmed aspirin 81 mg tablet,delayed 81 mg PO DAILY 12/12/22 12/12/22 release pyridoxine (vitamin B6) 25 mg 1 mg PO DAILY 12/12/22 12/12/22 tablet (Vitamin B-6) Allergies Allergy/AdvReac Type Severity Reaction Status Date / Time meperidine [From Demerol] Allergy Unknown Verified 12/12/22 08:35 Review of Systems Review of Systems: All systems reviewed & are unremarkable except as noted in HPI and below Constitutional: Constitutional: Reports no additional constitutional complaints Eyes: Eyes: Reports no additional eye complaints ENT: Reports system reviewed and no additional complaints, except as documented Cardiovascular: Cardiovascular: Reports no additional cardiovascular complaints Respiratory: Respiratory: Reports no additional respiratory complaints Gastrointestinal: Gastrointestinal: Reports no additional gastrointestinal complaints Genitourinary: Genitourinary: Reports no additional female genitourinary complaints Musculoskeletal: Musculoskeletal: Reports no additional musculoskeletal complaints Integumentary/Breasts: Skin/Breast: Reports system reviewed and no additional complaints, except as docu Neurologic: Reports system reviewed and no additional complaints, except as documented Psychiatric: Psychiatric: Reports no additional psychiatric complaints Endocrine: Endocrine: Reports no additional endocrine complaints Hematologic/Lymphatic: Hematologic/Lymphatic: Reports no additional hematologic/lymphatic complaints Allergic/Immunologic: Allergic/Immunologic: Reports no additional allergic/immunologic complaints [facility] Past Medical History Medical History Bronchiolitis Ovarian cyst Pelvic pain Surgical History Surgical History Ovarian cyst cysts removed off of ovaries Social History Social History Smoking status: Current every day smoker Exam Const: General: healthy appearing Nutritional Appearance: well nourished Orientation/consciousness: patient oriented x3 HENMT: Head: normal to inspection Ears: external ears normal Face/Nose/Sinus: Normal external nose present Face and sinus: normal facial exam Eyes: Conjunctivae: conjunctivae normal Pupils: Equal, round and reactive pupils present EOM: EOMs intact bilaterally Neck: Neck: normal visual inspection Chest: Chest palpation & inspection: normal inspection of the chest Resp: Effort & Inspection: normal respiratory effort and not labored Auscultation: clear to auscultation bilaterally Cardio: Rate: regular rate Rhythm: regular rhythm Heart sounds: no murmurs GI: Inspection: non-distended GI Palp: Yes Soft to palpation and No Tenderness to palpation present (GI) Auscultation: normal bowel sounds : General: Yes bladder normal to palpation Back/Spine/Pelvis: Back: no CVA tenderness Skin: General s
[2023-11-15] MEDS: KETOROLAC (*BKC) 60 MG/2 ML VIAL IM (17:17)
[2023-11-15 17:21] VITALS: BP 152/102; PULSE 78; RESP 20; O2SAT 97
[2023-11-15 17:54] VITALS: BP 152/99; PULSE 75; RESP 20; O2SAT 98
== END 2023-11-15 17:54 | disposition home or self-care (01) ==
PROVIDERS: Emergency Provider Emergency Medicine; PCP Physician Assistant
DX: S83.411A Sprain of medial collateral ligament of right knee, initial encounter (principal); W18.09XA Striking against other object with subsequent fall, initial encounter; F17.200 Nicotine dependence, unspecified, uncomplicated
CPT/HCPCS: 73562; 96372; 99283; J1885

== ENCOUNTER 2025-02-25 12:39 | Observation (INO) | payer OTHER, SELFPAY ==
[2025-02-25] VITALS (38 sets, daily range): BP systolic 136–175; BP diastolic 81–126; PULSE 94–134; RESP 16–39; TEMP 36.9–37.1; O2SAT 94–100; BMI 24.1
--- NOTE | ~2025-02-25 | XR_ITS ---
EXAMINATION: XR chest 2V 02/25/2025 12:57 INDICATION: Cough and shortness of breath PROCEDURE: 2 view chest COMPARISON: 08/27/2022 FINDINGS: The lungs are clear. The cardiomediastinal silhouette is within normal limits. There are no pleural effusions. There is no pneumothorax suspected. Prominent left nipple shadow. IMPRESSION: 1: NO ACUTE CARDIOPULMONARY DISEASE. Reviewed, dictated and finalized at location A.
--- OUTSIDE RECORDS SUMMARY | 2025-02-25 12:42 | XMS_ITS | Clinical Summary ---
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 Role Phone Lamin Yin Primary Care Provider [phone] Allergies Active Allergy Reactions Criticality Noted Date Comments Meperidine Hives,Other (See comments) Medium 0 Medications Symbicort 160-4.5 mcg/actuation inhaler 3 Active M- Plus 27 mg iron- 1 mg tablet 3 Active docusate sodium (COLACE) 100 mg capsuleIndicati ons:constipatio n,Stool Softener Take 1 capsule (100 mg total) by mouth 2 (two) times a day as needed for constipation 60 capsule 1 3 Active ferrous sulfate 325 mg (65 mg of elemental iron) tabletIndicatio ns:Iron Deficiency Anemia Take 1 tablet (325 mg total) by mouth daily 30 tablet 3 3 Active HYDROcodone-mounika taminophen (NORCO) 5-325 mg per tabletIndicatio ns:Pain Take 1 tablet by mouth every 4 (four) hours as needed for pain 20 tablet 3 Active ibuprofen (ADVIL,MOTRIN) 600 mg tabletIndicatio ns:Cramps Take 1 tablet (600 mg total) by mouth every 6 (six) hours as needed for pain 30 tablet 1 3 Active Hospital, Clinic, or Other Facility Administered Medication Ordered Dose Route Frequency Start Date End Date Status nicotine polacrilex (NICORETTE) gum 2 mgIndications:Tobac co use 2 mg mouth/throa t Every 1 hour PRN 11/27/2022 Active Active Problems Problem Noted Date Diagnosed Date Encounter for elective induction of labor 2022 Acute headache 01/24/2023 Overview (03/19/2023): Reports h/o migraines prior to . Revealed with Excedrin and Aleve outside of . No improvement with APAP. 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 Chronic hypertension affecting 023 Overview (04/26/2023): CURRENT REGIMEN: no meds S/p counseling. Plan: [x] ASA at 12 weeks [x] Baseline labs (CBC, CMP, UPC) - wnl. UPC 0.1 [x] EKG - wnl [x] Echo (04/25) - normal LV function and thickness, EF 61%. Normal RV pressure. Mild tricuspid regurg. Normal left ventricular systolic function with no focal wall motion abnormalities. Normal left ventricular size. [x] Serial growth ultrasound starting at 28 weeks - 03/19 AGA [ ] Weekly testing at 32 weeks if requiring antihypertensives IUFD at 20 weeks or more of gestation 11/27/2022 Overview (03/19/2023): History: - History of IUFD at 20 weeks in 2019-- painful contractions with vaginal bleeding. Pt states it felt like labor - Prior work-up unknown as no records available. Patient reports no autopsy, genetic analysis, or follow up labs. Told it was due to natural causes S/p counseling Plan: [x] Patient elected for q2w cervical length screening, completed with primary OBGYN [x] Smoking cessation- counseled 11/27 [x] Antiphospholipid antibody testing - negative anticardiolipin and anti-beta 2 glycoprotein, negative lupus anticoagulant 02/21/23 [] Serial growth scans every 4 weeks starting at 28 weeks - most recently today, AGA [] Delivery at term (maternal anxiety with a history of stillbirth should be considered and may warrant an early term delivery (37 0/7 weeks to 38 6/7 weeks) pending other medical conditions Supervision of high-risk , unspecified trimester 11/27/2022 Overview (03/19/2023): 1st Trimester: [x] Dating Criteria: 1T US [x] Labs: Rh pos, Ab neg, H/H 11.5/35.8, Plt 291, Rubella imm, VZV imm, HIV NR, RPR NR, HepBSAg NR, Hep C Ab NR [x] GC/CT/Trich: neg x3 [x] UCx: neg [x] vitamins [x] Genetic Screening: LR NIPT [x] Carrier screening: negative CF [x] Hgb electrophoresis: AA [x] Pap: wnl 10/2021 [] EPDS: PNBHS referral (if indicated) [x] ASA at 12 weeks (if indicated) 2nd Trimester: [x] Anatomy ultrasound: wnl 01/24/23 [x] CBC: Hgb 11.7, Plt 208 [x] 1hr GTT (24-28wks): Obtained with Dr. Cormier, 88 [] Flu Shot (Sep-Jun): [] Tdap (27-36wks): desires to obtain with primary [] Rhogam (if Rh neg): N/A [] Childbirth classes discussed [] education (colostrum, expected breast changes, plan for RTW) and breast pump ordered [] Second trimester education packet 3rd Trimester: [] CBC/HIV/RPR/T&S: [] GBS: [] GC/CT/Trich (if indicated): [] Final discussion (S2S, Baby Friendly, LC Support, PP experience) [] Third trimester education packet Last visit: [] Last clinic visit SVE: [] IOL start agent: [] Epidural: [] Consents signed: Counseling: [] Method of delivery: [] Bottle of CHG 4% and hand out provided @ 36wks (if planned) [] Timing of delivery: [] MOC: [] MOF: [] COVID-19 vaccine counseling [] education: completed in all 3 trimesters [] Business Support Professional: [] Car seat discussed [] PP depression counseling Tobacco smoking affecting in first tri mester 11/27/2022 Overview (02/20/2023): S/p counseling and Rx for nicotine replacement gum. Nausea 11/27/2022 Overview (11/27/2022): B6 and Unisom sent to pharmacy.Patient already taking Zofran. 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 Plan: [] Consider serial PFTs [] Close co-management with rheumatology. Rheum appt moved up to 03/05 at 2PM, however unable to make. Rescheduled for 04/03. [] Referral placed for pulmonology due in increased exertional SOB - scheduled for PFTs and visit 02/15 however patient appears to have missed. Number provided to reschedule. [] 3rd trimester anesthesia consultation Surgical History Surgery Date Site/Laterality Comments OVARIAN CYST REMOVAL 05/22/2020 - 06/20/2020 Medical History Medical History Date Comments Dental caries Sarcoidosis Hypertension Family History Medical History Relation Name Comments Hypertension Maternal Grandmother Hypertension Mother Relation Name Status Comments Maternal Grandmother Mother Social History Tobacco Use Types Packs/Day Years Used Date Smoking Tobacco: Former Cigarettes 0.3 18 Smokeless Tobacco: Never Tobacco Cessation:Counseling Given: Not Answered Social Connection and Isolation Panel [NHANES] A nswer Date Recorded In a typical week, how many times do you talk on the phone with family, friends, or neighbors? Three times a week 05/29/2023 How often do you get togethe r with friends or relatives? Three times a week 05/29/2023 How often do you attend chur ch or confucianism services? Patient declined 05/29/2023 Do you belong to any clubs o r organizations such as taoist groups, unions, fraternal or athletic groups, or school groups? No 05/29/2023 How often do you attend meet ings of the clubs or organizations you belong to? Patient declined 05/29/2023 Marital Status Not on file 05/29/2023 AUDIT-C Answer Date Recorded Q1: How often do you have a drink containing alcohol? Never 05/29/2023 Q2: How many drinks containi ng alcohol do you have on a typical day when you are drinking? Patient does not drink Q3: How often do you have si x or more drinks on one occasion? Never 05/29/2023 Overall Financial Resource Strain (CARDIA) Answe r Date Recorded How hard is it for you to pa y for the very basics like food, housing, medical care, and heating? Not hard at all 05/29/2023 PHQ-2 Answer Date Recorded PHQ-2 Total Score (If total score is 3 or more points, staff should administer the PHQ-9) 0 05/29/2023 [facility] - Occupational Stress Questionnaire Answer Date Recorded Do you feel stress - tense, restless, nervous, or anxious, or unable to sleep at night because your mind is troubled all the time - these days? Only a little 05/29/2023 Exercise Vital Sign Answer Date Recorde d On average, how many days pe r week do you engage in moderate to strenuous exercise (like a brisk walk)? 4 days 05/29/2023 On average, how many minutes do you engage in exercise at this level? 30 min 05/29/2023 Hunger Vital Sign Answer Date Recorded Within the past 12 months, y ou worried that your food would run out before you got the money to buy more. Never true 05/09/20 23 Within the past 12 months, t he food you bought just didn't last and you didn't have money to get more. Never true 05/09/2023 PRAPARE - Transportation Answer Date Re corded In the past 12 months, has l ack of transportation kept you from medical appointments or from getting medications? No 02/2023 In the past 12 months, has l ack of transportation kept you from meetings, work, or from getting things needed for daily living? No 05/29/2023 Housing Stability Vital Sign Answer Franky e Recorded In the last 12 months, was t here a time when you were not able to pay the mortgage or rent on time? No 05/29/2023 In the last 12 months, how many places have you lived? 1 05/29/2023 In the last 12 months, was t here a time when you did not have a steady place to sleep or slept in a usp (including now)? No 05/29/2023 Winthrop Depression Scale Answer Date Recorded Winthrop Depression Scale Total 10 02/21/2023 The thought of harming myself has occurred to me . Never 02/21/2023 Personal Safety Answer Date Recorded Have you ever been in or are you currently in a harmful physical or emotional relationship or is someone making you feel afraid or unsafe? Denies 09/04/2024 Comments No Sex and Gender Information Value Date Recorded Sex Assigned at Not on file Legal Sex Female 8:06 AM CDT Gender Identity Not on file Sexual Orientation Not on file Obstetrics History Para Term AB IAB SAB Ectopic Multiple Livin g Live Births 7 7 6 1 0 6 2 Date Outcome GA Total Labor Labor/2nd/3rd Weight Sex Type Anes PTL Steffanie A1 A5 Name Clin 20w 0d Vag-Sp ont Demis e 2002 Term Vag-Sp ont Livin g 2003 Term Vag-Sp ont 2005 Term Vag-Sp ont 2008 Term Vag-Sp ont 2018 Term Vag-Sp ont 2022 Term 39w 1d 2h 10m 1h 52m/0h 15m/0h 03m 3.47 kg (7 lb 10.4 oz) F Vagina l Epidur al N Livin g 9 9 PATI ,GIRL SEAN Hudson an, Jacob rob MD Complications:None Delivery Location:This Facil [facility]y ([facility]) Last Filed Vital Signs Vital Sign Reading Time Taken Comments Blood Pressure 128/96 09/04/2024 10:00 PM FURNACE PUNCHER Pulse 68 09/04/2024 10:15 PM FURNACE PUNCHER Temperature 37.1 C (98.8 F) 09/04/2024 5:12 PM FURNACE PUNCHER Respiratory Rate 18 09/04/2024 5:12 PM FURNACE PUNCHER Oxygen Saturation 100% 09/04/2024 10:15 PM FURNACE PUNCHER Inhaled Oxygen Concentration - - Weight 84.8 kg (187 lb) 11/02/2023 8:19 PM CDT Height 170.2 cm (5' 7) 11/02/2023 8:19 PM CDT Body Mass Index 29.29 11/02/2023 8:19 PM CDT Plan of Treatment Health Maintenance Due Date Last Done Comments Cervical Cancer Screening 1985 Hepatitis C Screening 1985 Varicella Vaccines (1 of 2 - 13+ 2-dose series) 1998 Regular Well Visit/Exam 18-64 01/01/2004 HPV Vaccines (1 - 3-dose SCDM series) 2012 Depression Screening 05/09/2024 05/09/2023, 05/09/2023, 05/09/2023, Additional history exists Influenza Vaccine (#1) 2025 DTaP/Tdap/Td Vaccine (3 - Td or Tdap) 03/27/2033 03/27/2023, 10/02/2017 Hepatitis B Screening Completed 04/20/1997 , 11/18/1996, 10/14/1996 Pneumococcal vaccine <65 Aged Out No longer eligible based on patient's age to complete this topic Insurance [employer] [facility] Advance Directives For more information, please contact: [phone] * Full Code (Latest Code Status on File) Date Activated Date Inactivated Comments 05/29/2023 2:43 PM 05/31/2023 5:32 PM * Full Code Date Activated Date Inactivated Comments 05/29/2023 6:11 AM 05/29/2023 2:42 PM Full CPR in case of cardiopulmonary arrest Care Teams Field Crop Farm Worker Relationship Specialty Start Date End Date Lamin Yin PA [address] [place] [address] PCP - General Family Practice 11/02/23
--- NOTE | 2025-02-25 12:49 | ED.SOB ---
HPI - SOB/Dyspnea General Chief Complaint: Shortness of Breath/Dyspnea Stated Complaint: shortness of breath Time Seen by Provider: 02/25/25 12:42 Source: patient Mode of arrival: ambulatory Limitations: no limitations History of Present Illness HPI Narrative: 39 years old female drove herself to the emergency room complaining of shortness of breath started yesterday noon. History of asthma. Ran out of Symbicort few days ago. Currently on albuterol inhaler without significant improvement. She denies any fever or chills or chest pain. Related Data Home Medications ?Medication ?Instructions ?Recorded ?Confirmed ?Last Taken ?Type budesonide-formoterol HFA 160 2 inh inhalation Q12H 02/25/25 02/25/25 02/25/25 History mcg-4.5 mcg/actuation aerosol inhaler (Symbicort) Allergies Allergy/AdvReac Type Severity Reaction Status Date / Time meperidine (From Demerol) Allergy Unknown Verified 02/25/25 12:55 Review of Systems Review of Systems: All systems reviewed & are unremarkable except as noted in HPI and below PMFSH Past Medical History Medical History Bronchiolitis Pelvic pain Ovarian cyst Surgical History Surgical History Ovarian cyst cysts removed off of ovaries Social History Social History Smoking packs per day: 0.5 Smoking cigarettes per day: 10.0 Years smoked: 20 Smoking pack-years: 10.00 Smoking status: Current every day smoker Tobacco type: cigarettes Second hand tobacco smoke exposure: No Alcohol intake: current Drinks per week: 5 Substance use: never Lack of Transportation: No Lack of Food: Never True Current Housing: I Have Housing Concerned About Future Housing: No Difficulty Paying Gas/Electric Bills: No Difficulty Paying for Meds: No Currently Unemployed: No Education: High School Diploma/GED Difficulty w/ Childcare or Family Care: No Spiritual care concerns: No Exam Narrative: General appearance: Well-developed, well-nourished Skin: Normal color Head: Normocephalic, nontraumatic Eyes: Clear conjunctiva ENT: Oropharynx normal, ears normal, nose normal Neck: Supple, nontender Chest and respiratory: Airway patent, Generalize wheezing and rhonchi bilaterally, slight labored breathing, Heart: Regular rate/rhythm Abdomen: Soft, nontender, no organomegaly, quiet bowel sounds Vascular: Normal peripheral pulses, normal capillary refill. Musculoskeletal: Normal range of motion, nontender back Neurologic: Alert and oriented ?3, GAS ROLLER OPERATOR is normal as tested, no gross motor deficit Course Vital Signs Vital signs: Vital Signs Temperature 37.1 C 02/25/25 12:38 Pulse Rate 103 H 02/25/25 12:38 Respiratory Rate 16 02/25/25 12:38 Blood Pressure 175/119 H 02/25/25 12:38 Pulse Oximetry 96 02/25/25 12:38 Oxygen Delivery Room Air 02/25/25 12:38 Temperature 36.9 C 02/25/25 16:00 Pulse Rate 107 H 02/25/25 20:00 Respiratory Rate 20 02/25/25 20:00 Blood Pressure 145/81 H 02/25/25 16:00 Pulse Oximetry 99 02/25/25 20:00 Oxygen Delivery Room Air 02/25/25 20:00 Oxygen Flow Rate 2 02/25/25 20:00 MDM - SOB/Dyspnea MDM Narrative Medical decision making narrative: patient came with shortness of breath, history of asthma, ran out of Symbicort few days prior to arrival, patient is a smoker Vital signs showing blood pressure 175/119, heart rate 103 otherwise within normal limit Physical examination showing restless patient, slight labored breathing, generalize coarse wheezing and rhonchi bilaterally Differential diagnosis include asthma flare, pneumonia, bronchitis Blood workup today includes CBC, CMP showed potassium 3.3, otherwise insignificant abnormalities Patient tested negative for COVID flu and RSV Chest x-ray showed no acute abnormalities Peak flow before 200 and after 10 mg of albuterol nebulizer treatment 270. Patient received prednisone 60 mg p.o. on arrival Patient received to g of magnesium, Patient showed slight improvement. Still having slight labored breathing And diffuse generalized wheezing bilaterally. BiPAP is not recommended at this time. Blood gas on room air showed mild hypoxia with oxygen saturation on room air 93.2% Admit to hospitalist Differential Diagnosis Differential diagnosis: Likely acute exacerbation of chronic obstructive airways disease, congestive heart failure, community acquired pneumonia and asthma with exacerbation Medical Records Attestation: I reviewed the patient's medical records. Lab Data Attestation: I reviewed the patient's lab results. 02/25/25 14:05 02/25/25 14:05 Labs: Lab Results 02/25/25 02/25/25 Range/Units 12:55 14:05 WBC 5.6 (4.8-10.8) K/mm3 RBC 4.42 (4.20-5.40) M/mm3 Hgb 11.5 L (12.0-15.0) g/dL Hct 35.9 (35.0-49.0) % MCV 81.2 (78.0-102.0) fL MCH 26.0 L (27.0-31.0) pg MCHC 32.0 (32-36) g/dL RDW 19.9 H (11.6-14.4) % Plt Count 209 (150-420) K/mm3 MPV 10.3 (9.2-11.8) fl Immature Gran % (Auto) 0.5 H (0.0-0.0) % Neut % (Auto) 67.4 (50.0-70.0) % Lymph % (Auto) 19.1 (18.0-42.0) % [place] % (Auto) 10.9 (2.0-11.0) % Eos % (Auto) 1.4 (1.0-6.0) % Baso % (Auto) 0.7 (0.0-1.0) % Lymph # (Auto) 1.07 L (1.10-4.50) K/mm3 [place] # (Auto) 0.61 (0.10-0.90) K/mm3 Eos # (Auto) 0.08 (0.02-0.50) K/mm3 Baso # (Auto) 0.04 (0.00-0.10) K/mm3 Abs Immat Gran (auto) 0.03 H (0.00-0.00) K/mm3 Absolute Neuts (auto) 3.77 (1.70-7.20) K/mm3 Absolute Nucleated RBC 0.00 (0.00-0.00) K/mm3 Nucleated RBC % 0.0 (0-0.0) % Sodium 138 (137-145) mmol/L Potassium 3.3 L (3.4-5.0) mmol/L Chloride 102 (98-107) mmol/L Carbon Dioxide 25 (22-30) mmol/L Anion Gap 11 (4-12) mmol/L BUN 4 L (7-17) mg/dL Creatinine 0.63 L (0.7-1.0) mg/dL Estim Creat Clear Calc 100 ml/min Estimated GFR > 60 (59 - ) Glucose 125 H (65-110) mg/dL Calculated Osmolality 283 L (285-295) mOsm/kg Calcium 9.9 (8.4-10.2) mg/dL Total Bilirubin 0.9 (0.2-1.3) mg/dL AST 43 H (14-36) U/L ALT 32 (6-35) U/L Alkaline Phosphatase 59 (38-126) U/L Total Creatine Kinase 135 (30-135) U/L Total Protein 8.4 H (6.3-8.2) g/dL Albumin 4.7 (3.5-5.1) g/dL Influenza A (RT-PCR) Negative (Negative) Influenza B (RT-PCR) Negative (Negative) RSV (RT-PCR) Negative (Negative) SARS-CoV-2 RNA (RT-PCR) Negative (Negative) Group A Strep (PCR) Not detected (Negative) ABG Data ABG results: 02/25/25 14:20 Puncture Site Left radial ABG pH 7.49 H ABG pCO2 32.2 L ABG pO2 67.5 L ABG HCO3 24.2 ABG O2 Saturation 93.2 L ABG Base Excess 1.4 Oxyhemoglobin 92.7 L O2 Delivery Device Room air O2 Liters/Min 0.0 Imaging Data Radiologist's impression: Impressions Chest X-Ray 02/25/25 13:16 IMPRESSION: 1: NO ACUTE CARDIOPULMONARY DISEASE. Critical Care Time Critical Care Time Critical Care Time: No Discharge Plan Discharge Clinical Impression: Acute asthma flare Patient Disposition: Still a Patient Condition: Guarded Prognosis
[2025-02-25] MEDS: IPRATROPIUM BR 0.02% INH SOLN 0.5 MG/2.5 ML VIAL INHALATION (12:58)
--- NOTE | 2025-02-25 12:58 | PC.NURSE ---
covid swab sent to lab
[2025-02-25] MEDS: ALBUTEROL SULFATE NEB 2.5 MG/3 ML INH 10 MG INHALATION (12:59)
--- OUTSIDE RECORDS SUMMARY | 2025-02-25 13:24 | XMS_ITS | Clinical Summary ---
Author Organization [address] lto Address [address] [place] [address] Care Team Providers Care Research Mechanic Name Role Phone Lamin Yin Primary Care Provider [phone] Allergies Active Allergy Reactions Criticality Noted Date [...] No improvement with APAP. Patient unable to pick up and delivery driver Compazine, planning to get this week Plan: [...] education: completed in all 3 trimesters [] Instrument Checker: [] Car seat discussed [] PP depression [...] sarcoidosis in September of 2022 (diagnosed by warehouse associate Dr. Hilton) Salvage Machine Operator: Not yet seen a Salvage Machine Operator, scheduled for rheum visit on 04/03 CURRENT [...] often do you attend chur ch or mandaeism services? Patient declined 05/29/2023 Do you belong to any clubs o r organizations such as mu-ism groups, unions, fraternal or athletic groups, or [...] staff should administer the PHQ-9) 0 05/29/2023 [facility] - Occupational Stress Questionnaire Answer Date Recorded [...] place to sleep or slept in a fci (including now)? No 05/29/2023 [place] Depression Scale Answer Date Recorded [place] Depression Scale Total 10 02/21/2023 The thought [...] Comments Blood Pressure 128/96 09/04/2024 10:00 PM PROTECTIVE SIGNAL REPAIRER HELPER Pulse 68 09/04/2024 10:15 PM PROTECTIVE SIGNAL REPAIRER HELPER Temperature 37.1 C (98.8 F) 09/04/2024 5:12 PM PROTECTIVE SIGNAL REPAIRER HELPER Respiratory Rate 18 09/04/2024 5:12 PM PROTECTIVE SIGNAL REPAIRER HELPER Oxygen Saturation 100% 09/04/2024 10:15 PM PROTECTIVE SIGNAL REPAIRER HELPER Inhaled Oxygen Concentration - - Weight 84.8 [...] age to complete this topic Insurance [employer] [facility] Advance Directives For more information, please contact: [phone] * Full Code (Latest Code Status on File) Date Activated Date Inactivated Comments 05/29/2023 2:43 PM 05/31/2023 5:32 PM * Full Code Date Activated Date Inactivated Comments 05/29/2023 6:11 AM 05/29/2023 2:42 PM Full CPR in case of cardiopulmonary arrest Care Teams Research Mechanic Relationship Specialty Start Date End Date Lamin Yin PA [address] [place] [address] PCP - General Family Practice 11/02/23
[2025-02-25 13:25] LABS: Strep Group A RT-PCR NOT DETECTED (Negative)
[2025-02-25 13:36] LABS: Influenza A QL RT-PCR Negative (Negative); Influenza B QL RT-PCR Negative (Negative); RSV RNA, RT-PCR Negative (Negative); SARS-CoV-2 RNA PCR Negative (Negative)
[2025-02-25 14:11] LABS: Hematocrit 35.9 % (35.0-49.0); Hemoglobin 11.5 g/dL (12.0-15.0); Immature Granulocyte Percent A 0.5 % (0.0-0.0); Lymphocytes Absolute Auto 1.07 K/mm3 (1.10-4.50); Mean Corpuscular HGB Conc 32.0 g/dL (32-36); Mean Corpuscular Hemoglobin 26.0 pg (27.0-31.0); Mean Corpuscular Volume 81.2 fL (78.0-102.0); Nucleated Red Blood Cells Absolute Auto 0.00 K/mm3 (0.00-0.00); Nucleated Red Blood Cells Perc 0.0 % (0-0.0); Platelet Count Result 209 K/mm3 (150-420); Red Blood Count 4.42 M/mm3 (4.20-5.40); White Blood Count 5.6 K/mm3 (4.8-10.8)
[2025-02-25 14:20] LABS: Alanine Aminotransferase 32 U/L (6-35); Albumin Level 4.7 g/dL (3.5-5.1); Alkaline Phosphatase 59 U/L (38-126); Anion Gap 11 mmol/L (4-12); Aspartate Amino Transferase 43 U/L (14-36); Bilirubin,Total 0.9 mg/dL (0.2-1.3); Blood Urea Nitrogen 4 mg/dL (7-17); Calcium 9.9 mg/dL (8.4-10.2); Carbon Dioxide 25 mmol/L (22-30); Chloride 102 mmol/L (98-107); Creatine Kinase 135 U/L (30-135); Estimated CRCL calculation 100 ml/min; Estimated Glomerular Filt Rate > 60; Glucose 125 mg/dL (65-110); Osmolality Calculated 283 mOsm/kg (285-295); Potassium 3.3 mmol/L (3.4-5.0); Sodium 138 mmol/L (137-145); Total Protein 8.4 g/dL (6.3-8.2)
[2025-02-25 14:23] LABS: HCO3 ABG 24.2 mmol/L (23-29); Oxygen Saturation ABG 93.2 % (95-97); PCO2 ABG 32.2 mmHg (35-45); PO2 ABG 67.5 mmHg (80-90)
[2025-02-25 14:24] LABS: Liters per Minute 0.0 LPM; Modified Allen's Test Pass; Site Drawn LEFT RADIAL
[2025-02-25] MEDS: MAGNESIUM SULF 2 GM/WATER 50ML 2 GM/50 ML BAG IVPB (14:33)
[2025-02-25] MEDS: IPRATROPIUM 0.5 MG/ALBUTEROL SULFATE 2.5 MG AMPUL.NEB 3 ML INHALATION ×2 (15:48→19:05)
--- NOTE | 2025-02-25 16:05 | ADMGEN ---
This patient, Jane Newman, was admitted to 2nd Floor Room 205-1. Patient/family oriented to hospital policies and general routines including ID bracelet, bed and alarms, visiting hours, pain management, procedures, bathroom and other care routines, personal items, smoking policy, room service/diet, and visiting hours. Information on how to activate the Rapid Response Team has been discussed. Patient/Family are encouraged to report perceived risks to care and to ask questions if they do not understand what they are told or what they should do.
[2025-02-25] MEDS: ACETAMINOPHEN 325 MG TABLET 650 MG PO (19:34)
[2025-02-26] VITALS (9 sets, daily range): BP systolic 148–155; BP diastolic 92–98; PULSE 75–101; RESP 18–20; TEMP 36.6–36.9; O2SAT 96–100
[2025-02-26] MEDS: IPRATROPIUM 0.5 MG/ALBUTEROL SULFATE 2.5 MG AMPUL.NEB 3 ML INHALATION ×4 (01:17→17:44)
[2025-02-26] MEDS: ACETAMINOPHEN 325 MG TABLET 650 MG PO ×2 (08:25→16:33)
--- NOTE | 2025-02-26 09:09 | PM.IMHP ---
H&P: HPI History of Present Illness Date/Time: 02/26/25 09:09 Chief Complaint: Shortness of breath Narrative: 39yo female with asthma here for shortness of breath. Patient was diagnosed with asthma about 2 and half years ago when she began to have intermittent shortness of breath. In 2022, she had PFT showing mild restrictive ventilatory impairment with no response to bronchodilators. Respiratory 6 minute walk test around that time showed transient desaturation to 89% without rachel hypoxemia. Chest CT September 2022 showed innumerable tiny perilymphatic nodules with extensive mild interstitial thickening and mild mediastinal adenopathy concerning for sarcoidosis. She states she was seen in the emergency room in 2023 and was diagnosed with asthma at that time. She saw her doctor and was started on Symbicort scheduled and albuterol as needed. She has been compliant with her Symbicort 2 puffs every 12 hours. She uses albuterol 2 puffs 3 times a week on average when she has dyspnea on exertion. She does not have significant wheezing. She does not have nebulizer treatments at home. Her last time that she was on steroids was 1 year ago. She does not have sickle cell trait or sickle cell disease. She has never been intubated. She does not know what triggers she has and make her lung disease worse. She smokes half a pack a day and has smoked for 23 years. Patient was doing well when about 4 days prior to admission when she developed cough productive green sputum and tightness in the chest. She ran out of her Symbicort about 1 week ago. She increased her albuterol use to 2 puffs b.i.d.. Her shortness of breath worsened and she developed difficulty talking, diaphoresis and worsening shortness of breath. No fever or chills. No dysuria or hematuria. Cough is nonproductive green sputum. There has been no sick contacts. She had 2 loose stools but nothing since. She had 1 episode of nausea with vomiting. No calf pain. No history of veno thromboembolic disease. No sore throat. She presented to the emergency room for evaluation. In the emergency room she was tachycardic at 115 with an elevated blood pressure 158/126. Respiratory rate was 24. She is 97% on room air. COVID, influenza and RSV PCR were negative. Chest x-ray was clear. Pertinent labs include normal white count, potassium 3.3, glucose 125 and AST 43. AB.49/32/67 on room air. Group A strep PCR was negative. She was given extended nebulizer treatments, prednisone, magnesium and Solu-Medrol. She was admitted for further care. Her blood pressure has improved since admission but she mentions that she has elevated blood pressure at the doctor's office but she has never been on medications for hypertension. Review of Systems Review of Systems: All systems reviewed & are unremarkable except as noted in HPI and below [facility] Past Medical History Medical History (Updated 02/26/25 @ 09:31 by Natanael Mckeon MD) Tobacco abuse Asthma Bronchiolitis Pelvic pain Ovarian cyst Surgical History Surgical History Ovarian cyst cysts removed off of ovaries Family History Family History (Updated 02/26/25 @ 09:26 by Natanael Mckeon MD) Son Asthma Father CAD (coronary artery disease) heart disease in his 50s. Mother Cerebrovascular accident Hypertension Sibling Asthma Sickle cell trait Social History Social History (Updated 02/26/25 @ 09:27 by Natanael Mckeon MD) Social History: patient smokes half a pack a day for 23 years. She drinks 2 alcoholic drinks per week. No history of drug use. She lives at home with her alinae and for of her 7 children. No pets. Code status- full surrogate decision maker - uriel Smoking packs per day: 0.5 Smoking cigarettes per day: 10.0 Years smoked: 20 Smoking pack-years: 10.00 Smoking status: Current every day smoker Tobacco type: cigarettes Second hand tobacco smoke exposure: No Alcohol intake: current Drinks per week: 5 Substance use: never Lack of Transportation: No Lack of Food: Never True Current Housing: I Have Housing Concerned About Future Housing: No Difficulty Paying Gas/Electric Bills: No Difficulty Paying for Meds: No Currently Unemployed: No Education: High School Diploma/GED Difficulty w/ Childcare or Family Care: No Spiritual care concerns: No Meds Home Medications and Allergies Home Medications ?Medication ?Instructions ?Recorded ?Confirmed ?Type budesonide-formoterol HFA 160 2 inh inhalation Q12H 02/25/25 02/25/25 History mcg-4.5 mcg/actuation aerosol inhaler (Symbicort) Allergies Allergy/AdvReac Type Severity Reaction Status Date / Time meperidine (From Demerol) Allergy Unknown Verified 02/25/25 12:55 Vital Signs Vital Signs - 24 hr 02/25/25 12:38 02/25/25 12:46 02/25/25 12:47 Temperature 98.7 F Pulse Rate 103 H 115 H 107 H Respiratory Rate 16 24 H Blood Pressure 175/119 H 158/126 H Pulse Oximetry 96 97 97 Oxygen Delivery Room Air Room Air Oxygen Flow Rate 02/25/25 12:50 02/25/25 12:58 02/25/25 13:00 Temperature Pulse Rate 106 H 95 Respiratory Rate 22 H Blood Pressure 168/125 H Pulse Oximetry 97 97 97 Oxygen Delivery Room Air Room Air Oxygen Flow Rate 02/25/25 13:00 02/25/25 13:01 02/25/25 13:04 Temperature Pulse Rate 107 H 114 H 108 H Respiratory Rate 20 22 H Blood Pressure 136/110 H Pulse Oximetry 96 97 Oxygen Delivery Room Air Oxygen Flow Rate 02/25/25 13:15 02/25/25 13:16 02/25/25 13:30 Temperature Pulse Rate 97 98 100 Respiratory Rate Blood Pressure 143/106 H Pulse Oximetry 100 100 Oxygen Delivery Oxygen Flow Rate 02/25/25 13:31 02/25/25 13:45 02/25/25 13:46 Temperature Pulse Rate 100 94 108 H Respiratory Rate 24 H 22 H Blood Pressure 144/104 H 141/98 H Pulse Oximetry 100 100 Oxygen Delivery Room Air Oxygen Flow Rate 02/25/25 14:00 02/25/25 14:01 02/25/25 14:01 Temperature Pulse Rate 134 H 105 H 127 H Respiratory Rate 22 H 20 Blood Pressure 159/124 H Pulse Oximetry 97 98 97 Oxygen Delivery Room Air Oxygen Flow Rate 02/25/25 14:15 02/25/25 14:16 02/25/25 14:17 Temperature Pulse Rate 117 H 116 H 109 H Respiratory Rate 22 H 25 H 30 H Blood Pressure 156/113 H Pulse Oximetry 97 97 Oxygen Delivery Room Air Oxygen Flow Rate 02/25/25 14:30 02/25/25 14:31 02/25/25 14:45 Temperature Pulse Rate 111 H 108 H 104 H Respiratory Rate 33 H 39 H 39 H Blood Pressure 154/88 H Pulse Oximetry 97 98 Oxygen Delivery Room Air Oxygen Flow Rate 02/25/25 14:46 02/25/25 15:00 02/25/25 15:01 Temperature Pulse Rate 101 H 104 H 99 Respiratory Rate 31 H 26 H 22 H Blood Pressure 153/103 H 152/109 H Pulse Oximetry 95 95 Oxygen Delivery Room Air Room Air Oxygen Flow Rate 02/25/25 15:02 02/25/25 15:15 02/25/25 15:16 Temperature Pulse Rate 97 98 102 H Respiratory Rate 23 H 27 H 28 H Blood Pressure 159/104 H Pulse Oximetry 96 94 Oxygen Delivery Room Air Nasal Cannula Oxygen Flow Rate 2 02/25/25 15:30 02/25/25 15:31 02/25/25 15:43 Temperature Pulse Rate 101 H 115 H 104 H Respiratory Rate 28 H 29 H 24 H Blood Pressure 154/104 H Pulse Oximetry 95 100 Oxygen Delivery Nasal Cannula Oxygen Flow Rate 2 2 02/25/25 15:45 02/25/25 15:46 02/25/25 15:49 Temperature Pulse Rate 104 H 109 H 94 Respiratory Rate 27 H 24 H 25 H Blood Pressure 136/99 H Pulse Oximetry 97 97 100 Oxygen Delivery Nasal Cannula Nasal Cannula Oxygen Flow Rate 2 2 02/25/25 15:55 02/25/25 15:57 02/25/25 16:00 Temperature 98.5 F Pulse Rate 107 H 104 H Respiratory Rate 24 H 20 Blood Pressure 145/81 H Pulse Oximetry 99 100 100 Oxygen Delivery Nasal Cannula Nasal Cannula Nasal Cannula Oxygen Flow Rate 2 2 2 02/25/25 20:00 02/25/25 20:00 02/26/25 00:00 Temperature 98.5 F Pulse Rate 107 H 107 H 101 H Respiratory Rate 20 20 20 Blood Pressure 148/92 H Pulse Oximetry 99 99 96 Oxygen Delivery Nasal Cannula Room Air Room Air Oxygen Flow Rate 2 02/26/25 06:30 02/26/25 06:37 02/26/25 07:32 Temperature 97.8 F Pulse Rate 86 88 75 Respiratory Rate 20 20 20 Blood Pressure 155/95 H Pulse Oximetry 96 98 99 Oxygen Delivery Room Air Oxygen Flow Rate 2 2 Exam Narrative: AF 97.8 155/95 75 20 99% ra Gen - well appearing female in no acute respiratory distress who is nontoxic-appearing lying semi recumbent in bed HEENT - normocephalic. Atraumatic. Pupils equal round and reactive. Extraocular motions intact. Sclera clear and anicteric. Nares patent. Oropharynx was clear. No oral lesions. Moist mucous membranes. Tongue was midline. Palate ness symmetrically. No facial asymmetry. Neck - neck was supple. No dominant adenopathy, thyromegaly or masses. no axillary lymph adenopathy Chest - lungs are coarse mostly expiratory phase. Breast exam was deferred. CV - heart was regular rate and rhythm. S1-S2. No murmurs gallops or rubs. Abd - abdomen was soft. Nontender. Nondistended. Positive bowel sounds. No organomegaly or masses. Ext - no clubbing, cyanosis or edema. 2+ DP pulses bilaterally. Neuro - patient is alert and oriented x4. Strength is 5/5 in both upper and lower extremities. Cranial nerves 2-12 are intact. Speech is clear. Psych - normal mood and affect. Patient is pleasant and cooperative. Skin - warm and dry. No rashes noted. H&P: Results Labs Labs: Short CBC 02/25/25 Range/Units 14:05 WBC 5.6 (4.8-10.8) K/mm3 Hgb 11.5 L (12.0-15.0) g/dL Hct 35.9 (35.0-49.0) % Plt Count 209 (150-420) K/mm3 BMP 02/25/25 14:05 Sodium 138 Potassium 3.3 L Chloride 102 Carbon Dioxide 25 BUN 4 L Creatinine 0.63 L Glucose 125 H Calcium 9.9 Cardiac Enzymes 02/25/25 Range/Units 14:05 Total Creatine Kinase 135 (30-135) U/L Liver Function 02/25/25 Range/Units 14:05 Total Bilirubin 0.9 (0.2-1.3) mg/dL AST 43 H (14-36) U/L ALT 32 (6-35) U/L Alkaline Phosphatase 59 (38-126) U/L Albumin 4.7 (3.5-5.1) g/dL Assessment and Plan Assessment and plan (1) Acute asthma flare: Code(s): J45.901 - Unspecified asthma with (acute) exacerbation Status: Acute Assessment and Plan: Patient presumably with a diagnosis of asthma although chart review points more to the fact the patient probably has sarcoidosis. Patient feeling better with current steroid treatment. Chest x-ray was clear. Continue bronchodilators and Solu-Medrol today. Add mucinex. Patient will need follow-up with Pulmonary Clinic at discharge. (2) Elevated blood pressure reading: Code(s): R03.0 - Elevated blood-pressure reading, without diagnosis of hypertension Status: Acute Assessment and Plan: Patient with elevated blood pressure on admission that has improved. Seventy elevated blood pressure may be related to steroids. patient probably has underlying hypertension or white coat hypertension. Monitor blood pressure. Will have hydralazine available as needed. Hold off on treatment at this time and have her re-evaluated in the primary care clininc when she is well. (3) Hypokalemia: Code(s): E87.6 - Hypokalemia Status: Inactive Assessment and Plan: Potassium 3.3 on admission. No replacement given. Will repeat BMP. (4) Tobacco abuse: Code(s): Z72.0 - Tobacco use Status: Acute Assessment and Plan: Patient was strongly encouraged to abstain from tobacco use. Continue nicoderm. Plan DVT prophylaxis - Lovenox Code status - Full Hospitalist [facility] Advance Care Plan I have confirmed that the patient's Advanced Care Plan is present, code status is documented, or surrogate decision maker is listed in patient medical record.: Yes Medication Reconciliation I have utilized all available resources to obtain, update and review the patients current medications (includes all prescriptions, OTC, herbals, cannabis, and nutritional supplements).: Yes
[2025-02-26] MEDS: BUDESONIDE/FORMOTEROL (*SP) 160-4.5 MCG 6 GM INH 2 PUFF INHALATION ×2 (10:47→20:40)
[2025-02-26] MEDS: POTASSIUM CHLORIDE 20 MEQ ER TABLET 40 MEQ PO (10:50)
[2025-02-26] MEDS: guaiFENesin 12 HR 600 MG TABCR PO ×2 (10:51→20:40)
[2025-02-26] MEDS: ENOXAPARIN 40 MG/0.4 ML SYRINGE SUB-Q (10:51)
[2025-02-26 11:20] LABS: Pregnancy On Board Control Positive
[2025-02-27] VITALS: BP 138/103; PULSE 79; RESP 17; TEMP 36.7; O2SAT 97
[2025-02-27] MEDS: ACETAMINOPHEN 325 MG TABLET 650 MG PO ×2 (00:03→09:06)
[2025-02-27 00:05] VITALS: O2SAT 96
[2025-02-27] MEDS: IPRATROPIUM 0.5 MG/ALBUTEROL SULFATE 2.5 MG AMPUL.NEB 3 ML INHALATION ×3 (00:05→12:13)
[2025-02-27 00:20] VITALS: O2SAT 97
[2025-02-27 05:44] VITALS: O2SAT 96
[2025-02-27 05:45] VITALS: O2SAT 97
[2025-02-27 06:00] LABS: Anion Gap 6 mmol/L (4-12); Blood Urea Nitrogen 10 mg/dL (7-17); Calcium 10.0 mg/dL (8.4-10.2); Carbon Dioxide 24 mmol/L (22-30); Chloride 105 mmol/L (98-107); Estimated CRCL calculation 111 ml/min; Estimated Glomerular Filt Rate > 60; Glucose 127 mg/dL (65-110); Magnesium 1.8 mg/dL (1.6-2.3); Osmolality Calculated 281 mOsm/kg (285-295); Potassium 4.9 mmol/L (3.4-5.0); Sodium 135 mmol/L (137-145)
[2025-02-27 07:50] VITALS: BP 152/99; PULSE 76; RESP 18; TEMP 36.7; O2SAT 99
[2025-02-27] MEDS: BUDESONIDE/FORMOTEROL (*SP) 160-4.5 MCG 6 GM INH 2 PUFF INHALATION (09:02)
[2025-02-27] MEDS: ENOXAPARIN 40 MG/0.4 ML SYRINGE SUB-Q (09:02)
[2025-02-27] MEDS: guaiFENesin 12 HR 600 MG TABCR PO (09:02)
--- NOTE | 2025-02-27 09:09 | P.DS_ITS ---
DS: Admitting Diagnosis Discharge Date 02/27/2025 Admitting Diagnosis Acute asthma flare, elevated blood pressure reading, hypokalemia, tobacco abuse, sarcoidosis of lung DS: Discharge Diagnosis Discharge Diagnosis (1) Acute asthma flare: Code(s): J45.901 - Unspecified asthma with (acute) exacerbation Status: Acute Assessment and Plan: Patient presumably with a diagnosis of asthma although chart review points more to the fact the patient probably has sarcoidosis. Patient feeling better with current steroid treatment. Chest x-ray was clear. Continue bronchodilators and Solu-Medrol today. Add mucinex. Patient will need follow-up with Pulmonary Clinic at discharge. (2) Elevated blood pressure reading: Code(s): R03.0 - Elevated blood-pressure reading, without diagnosis of hypertension Status: Acute Assessment and Plan: Patient with elevated blood pressure on admission that has improved. Seventy elevated blood pressure may be related to steroids. patient probably has underlying hypertension or white coat hypertension. Monitor blood pressure. Will have hydralazine available as needed. Hold off on treatment at this time and have her re-evaluated in the primary care clininc when she is well. (3) Hypokalemia: Code(s): E87.6 - Hypokalemia Status: Inactive Assessment and Plan: Potassium 3.3 on admission. No replacement given. Will repeat BMP. (4) Tobacco abuse: Code(s): Z72.0 - Tobacco use Status: Acute Assessment and Plan: Patient was strongly encouraged to abstain from tobacco use. Continue nicoderm. (5) Sarcoidosis of lung: Code(s): D86.0 - Sarcoidosis of lung Status: Acute Assessment and Plan: -Improving with steroids and breathing treatments Plan DVT prophylaxis - Lovenox Code status - Full DS: Summary Hospital Course Reason for hospitalization: Respiratory distress Hospital Course: The patient presented to the hospital with severe shortness of breath, describing an inability to breathe at all upon arrival, and an intractable cough that has persisted for several days. She reports that her symptoms began approximately three days prior to admission, worsening to the point where she felt suffocated and unable to breathe, describing the sensation of someone literally suffocating her with a pillow, prompting her fianc? to bring her to the hospital around 4-5 AM. She has been hospitalized for 2 days. She describes rib pain due to persistent coughing and pressure. She has a known history of sarcoidosis, diagnosed two years ago and CT imaging showed small nodules and inflammation consistent with this condition, which is likely triggering her current symptoms. She has a history of smoking and expresses concern about possible COPD, though she feels she may be too young for this diagnosis. She has experienced improvement in her breathing since admission but continues to struggle with a bothersome cough and occasional dyspnea with exertion. She denies previous episodes of similar severity. She has been receiving nebulized albuterol, Symbicort, intravenous (IV) steroids, and will be prescribed a prednisone taper. She has also received guaifenesin/Mucinex and Tessalon Perles for cough, with some improvement noted. Patient also requested nebulizer treatment prescribed on discharge. Time spent discussing smoking cessation with patient: more than 10 minutes Status at Discharge Cognitive/behavioral status at discharge: awake, alert, oriented and pleasant Functional status at discharge: independent ambulation Overall status at discharge: patient is progressing back to baseline Time Spent with Patient Time attestation: Total time spent providing and/or coordinating discharge services: 50 minutes Time spent: Greater than 30 minutes Exam Narrative: Gen - well appearing female in no acute respiratory distress who is nontoxic- appearing lying semi recumbent in bed HEENT - normocephalic. Atraumatic. Pupils equal round and reactive. Extraocular motions intact. Neck - neck was supple. No dominant adenopathy, thyromegaly or masses. no axillary lymph adenopathy Chest - lungs are coarse mostly expiratory phase. Breast exam was deferred. CV - heart was regular rate and rhythm. S1-S2. No murmurs gallops or rubs. Abd - abdomen was soft. Nontender. Nondistended. Positive bowel sounds. No organomegaly or masses. Ext - no clubbing, cyanosis or edema. 2+ DP pulses bilaterally. Neuro - patient is alert and oriented x4. Strength is 5/5 in both upper and lower extremities. Cranial nerves 2-12 are intact. Speech is clear. Psych - normal mood and affect. Patient is pleasant and cooperative. Skin - warm and dry. No rashes noted. DS: Data Data Completed and Pending Labs on day of discharge: Labs from last 24 hours 02/27/25 02/26/25 05:28 11:02 Sodium 135 L Potassium 4.9 Chloride 105 Carbon Dioxide 24 Anion Gap 6 BUN 10 D Creatinine 0.56 L Estim Creat Clear Calc 111 Estimated GFR > 60 Glucose 127 H Calculated Osmolality 281 L Calcium 10.0 Magnesium 1.8 Urine Test Negative Discharge Plan Discharge Discharging Clinician: Vargas Fraser Anticipated Discharge Date/Time: 02/27/25 10:00 Patient Disposition: Home Activity: as tolerated Diet: regular Discharge Instructions: Prednisone taper and nebulizer treatments prescribed. Refill on Symbicort also written. Referral to Dr. Vaughan (or colleague) in [place] for Pulmonology for further workup/treatment of sarcoidosis. Please call Saturday for an appointment. This is a good time to quit smoking! Patient Instructions: Antibiotic Form, Prednisone (By mouth), Nicotine (Absorbed through the skin), Asthma (DC), How to Stop Smoking (DC), Sarcoidosis (DC) Patient Language: Nauruan Stand Alone Forms: General Discharge Information Follow-up/Referrals: Humphrey,SUSAN Christina [Primary Care Provider] - Call for Appointment Maverick Vaughan MD [Physician] - Call for Appointment Discharge Medications: New albuterol sulfate 2.5 mg /3 mL (0.083 %) Solution For Nebulization 2.5 mg inhalation Q4HRT PRN (Reason: Shortness Of Breath) Qty: 120 0RF nicotine [Nicoderm CQ] 21 mg/24 hr Patch 24 Hour 1 patch transdermal DAILY Qty: 30 0RF prednisone 10 mg tablets,dose pack See Taper PO DAILY 12 Days Qty: 42 0RF Taper: Prednisone Taper from 60 mg;12 days 60 mg DAILY for 2 Days and 0 Hour 50 mg DAILY for 2 Days and 0 Hour 40 mg DAILY for 2 Days and 0 Hour 30 mg DAILY for 2 Days and 0 Hour 20 mg DAILY for 2 Days and 0 Hour 10 mg DAILY for 2 Days and 0 Hour benzonatate 200 mg capsule 200 mg PO TID PRN (Reason: cough) Qty: 90 0RF dextromethorphan-guaifenesin [Mucinex DM] 60-1,200 mg tablet extended release 12 hr 1 tablet PO Q12H Qty: 60 0RF Continued budesonide-formoterol [Symbicort] 160-4.5 mcg/actuation HFA aerosol inhaler 2 inh inhalation Q12H 30 Days Qty: 1 0RF Date of admission: 02/25/25 15:44 Primary Care Provider: Humphrey,Lamin Corado Admitting Provider: Natanael Mckeon Attending physician on admission: Natanael Mckeon Condition: Improved Quality VTE Prophylaxis VTE prophylaxis: pharmacologic ordered Hospitalist MIPS Heart Failure (Exclusion) Patient has history of Heart Transplant or Left Ventricular Assistive Device?: No IF YES, STOP HERE Heart Failure (Qualifier) Patient has current or prior documentation of LVEF less than or equal to 40%, or mod/servere depressed LVSF?: No IF NO, STOP HERE
[2025-02-27] MEDS: BENZONATATE 100 MG CAPSULE 200 MG PO (11:15)
--- NOTE | 2025-02-27 13:30 | PC.NURSE ---
Patient discharging home. IV site removed, tip intact. Dressing applied to site. Patient gathered all belongings and sent home with patient. All discharge instructions and education reviewed with patient. Patient states understanding. All questions answered before discharge. Patient denies any further questions, left floor ambulatory with fiance, denied wheelchair ride. States she needs to walk.
--- NOTE | 2025-03-01 08:34 | PC.NURSE ---
Discharge call back made, VM indicated [facility] no accepting calls at this time.
--- NOTE | 2025-03-02 10:05 | PC.NURSE ---
Second discharge call back call made. Message indicated, person that is called is not accepting calls at this time.
== END 2025-02-27 13:30 | disposition home or self-care (01) ==
LOC: CHSED 13:22 → CHS2ND 15:52
PROVIDERS: Admitting Provider Internal Medicine; Emergency Provider Emergency Medicine; PCP Physician Assistant; Visit Provider Internal Medicine
DX: J45.901 Unspecified asthma with (acute) exacerbation (principal); D86.0 Sarcoidosis of lung; R03.0 Elevated blood-pressure reading, without diagnosis of hypertension; E87.6 Hypokalemia; R00.0 Tachycardia, unspecified; Z79.51 Long term (current) use of inhaled steroids; F17.210 Nicotine dependence, cigarettes, uncomplicated; Z20.822 Contact with and (suspected) exposure to COVID-19
CPT/HCPCS: 36415; 36600; 71046; 80048; 80053; 81025; 82550; 82805; 83735; 85025; 87637; 87651; 94640; 96365; 96366; 96375; 99285; A9270; J1650; J2919; J3475; J7512